=== PATIENT | male | born 1970 | race Caucasian/White ===

== ENCOUNTER 2017-12-22 14:15 | Emergency (ER) | payer BC, OTHER ==
[~2017-12-22 14:15] MED LIST: ISOVUE-370 76%-LOCM 1 ML ONE
[2017-12-22 14:33] LABS: #Basophils 0.2 thou/uL (0.0-0.2); #Eosinphils 0.3 thou/uL (0.0-0.7); #Lymphocytes 3.8 thou/uL (1.20-3.40); #Monocytes 0.8 thou/uL (0.11-0.59); #Neutrophils 3.7 thou/uL (1.40-6.50); %Basophils 2.1 % (0.0-1.0); %Eosinophils 3.3 % (0.0-10.0); %Monocytes 9.4 % (0.0-10.0); %Neutrophils 42.1 % (42.0-75.0); Hemoglobin 17.1 g/dL (14.0-18.0); Mean Corpuscular HGB CONC 35.8 g/dL (32.0-36.0); Mean Corpuscular Hemoglobin 32.8 pg (27.0-31.0); Mean Corpuscular Volume 91.5 fl (80.0-94.0); Mean Platelet Volume 9.8 fL (7.4-10.4); Platelet Count 147 thou/uL (130-400); Red Blood Cell (RBC) Count 5.21 mill/uL (4.70-6.10); White Blood Cell (WBC) Count 8.8 thou/uL (4.8-10.8)
[2017-12-22 14:54] LABS: ALT (SGPT) 189 U/L (8-55); AST (SGOT) 71 U/L (5-34); Albumin 4.5 g/dL (3.5-5.0); Alkaline Phosphatase 151 U/L (40-150); Anion Gap 12 mmol/L (10-20); BUN (Urea Nitrogen) 17 mg/dL (8.9-20.6); Bilirubin, Total 0.4 mg/dL (0.2-1.2); CK (CPK) 113 U/L (30-200); Calc. Creatinine Clearance 0 mL/min (70-130); Calcium 9.6 mg/dL (7.8-10.44); Carbon Dioxide 28 mmol/L (22-29); Chloride 106 mmol/L (98-107); Estimated GFR-MDRD Greater than 90; Globulin 3.4 g/dL (2.4-3.5); Glucose 114 mg/dL (70-105); Potassium 3.9 mmol/L (3.5-5.1); Protein, Total 7.9 g/dL (6.0-8.3); Sodium 142 mmol/L (136-145)
--- NOTE | 2017-12-22 14:54 | RAD ---
FRONTAL VIEW CHEST: Date: 12/22/17 INDICATION: Chest pain. FINDINGS: There is prominence of cardiac silhouette. No lobar consolidation, effusion, or pneumothorax. Referen ce made to 05/24/17 exam. IMPRESSION: Stable chest without focal consolidation. POS: [facility]
[2017-12-22 14:58] LABS: CKMB 1.7 ng/mL (0-6.6); Troponin I Less than 0.010 ng/mL (< 0.028)
[2017-12-22] MEDS ORDERED: hydrALAZINE 20 MG/ML VIAL ONE (15:00)
--- NOTE | 2017-12-22 17:05 | CT ---
CTA CHEST WITH IV CONTRAST AND 3D POSTPROCESSING CTA ABDOMEN WITH IV CONTRAST AND 3D POSTPROCESSING 12/22/17 HISTORY: Sharp left sided chest pain with nausea, dizziness and cough radiating into the shoulder. Hypertensio n. Concern for aortic dissection. FINDINGS: the thoracoabdominal aorta was of normal caliber and good opacification without aneurysm or dissecti on. The pulmonary artery vasculature is also well opacified without filling defects to suggest pulmon vy embolism. No pleural or pericardial effusions are seen. No pneumothoraces, focal areas of consoli dation or pulmonary masses are identified. No free air or free fluid is seen in the abdomen. The matthew d organs are grossly unremarkable. There is normal flow in the celiac axis, SMA, MARTHA and renal arteri es. There are degenerative changes in the thoracolumbar spine. IMPRESSION: No CT evidence of aortic dissection. POS: TR[facility]
[2017-12-22 17:14] LABS: Troponin I Less than 0.010 ng/mL (< 0.028)
== END 2017-12-22 17:25 | disposition home or self-care (01) ==
LOC: ERS 14:15
DX: R07.9 Chest pain, unspecified (principal); I10 Essential (primary) hypertension; E66.9 Obesity, unspecified; F41.9 Anxiety disorder, unspecified; Z79.899 Other long term (current) drug therapy
CPT/HCPCS: 36415; 71045; 71275; 80053; 82550; 82553; 84484; 85025; 93005; 94760; 96374; J0360

== ENCOUNTER 2018-01-11 10:51 | Inpatient (IN) | payer BC ==
[2018-01-11] MEDS ORDERED: Esmolol 2,500 MG/250 ML 250 ML ONE (11:18)
[2018-01-11 11:19] LABS: #Basophils 0.1 thou/uL (0.0-0.2); #Eosinphils 0.3 thou/uL (0.0-0.7); #Lymphocytes 4.1 thou/uL (1.20-3.40); #Monocytes 0.8 thou/uL (0.11-0.59); %Eosinophils 3.7 % (0.0-10.0); %Lymphocytes 43.4 % (21.0-51.0); %Monocytes 8.9 % (0.0-10.0); %Neutrophils 43.1 % (42.0-75.0); Hemoglobin 18.2 g/dL (14.0-18.0); Mean Corpuscular HGB CONC 34.3 g/dL (32.0-36.0); Mean Corpuscular Hemoglobin 30.8 pg (27.0-31.0); Mean Corpuscular Volume 89.6 fl (80.0-94.0); Mean Platelet Volume 9.4 fL (7.4-10.4); Platelet Count 163 thou/uL (130-400); White Blood Cell (WBC) Count 9.3 thou/uL (4.8-10.8)
[2018-01-11 11:26] LABS: INR-International Normal Ratio 1.1; PTT 33.7 SEC (22.9-36.1); Prothrombin Time 14.5 SEC (12.0-14.7)
[2018-01-11 11:45] LABS: ALT (SGPT) 256 U/L (8-55); AST (SGOT) 118 U/L (5-34); Albumin 4.8 g/dL (3.5-5.0); Alkaline Phosphatase 120 U/L (40-150); Anion Gap 15 mmol/L (10-20); BUN (Urea Nitrogen) 10 mg/dL (8.9-20.6); Bilirubin, Total 0.6 mg/dL (0.2-1.2); CK (CPK) 104 U/L (30-200); Calc. Creatinine Clearance 0 mL/min (70-130); Calcium 9.9 mg/dL (7.8-10.44); Carbon Dioxide 26 mmol/L (22-29); Chloride 104 mmol/L (98-107); Estimated GFR-MDRD Greater than 90; Globulin 3.2 g/dL (2.4-3.5); Glucose 110 mg/dL (70-105); Potassium 3.7 mmol/L (3.5-5.1); Sodium 141 mmol/L (136-145)
[2018-01-11 11:51] LABS: CKMB 1.4 ng/mL (0-6.6); Troponin I Less than 0.010 ng/mL (< 0.028)
[2018-01-11] MEDS ORDERED: ISOVUE-370 76%-LOCM 1 ML ONE (13:34)
--- NOTE | 2018-01-11 13:39 | CT ---
CT ANGIOGRAM CHEST AND CT ANGIOGRAM ABDOMEN INCLUDING 3D RENDERING: Date: 01/11/18 HISTORY: 47-year-old male with history of chest pain and shortness of breath. COMPARISON: 12/22/17 and 05/16/17. FINDINGS: There is no evidence for focal aortic aneurysm or aortic dissection. No evidence for pulmonary artery thrombosis. No significant acute pulmonary parenchymal process or pleural effusion. No pericardial e ffusion. There are some fatty changes in the liver. Status post cholecystectomy. 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 This is stable in appearance when compared to ex am dating back to 05/16/17. At least two right and left renal arteries are seen. Normal appearing carolina endix. IMPRESSION: No evidence for thoracic or abdominal aortic aneurysm or dissection. No evidence for acute pulmonary artery thrombosis. Stable small, confined dissection involving the celiac artery, unchanged dating ba ck to 05/16/17. Fatty changes in the liver. Other findings as above. Findings were discussed with Dr. Torres at 1320 hours. CODE CR. POS: [facility]
[2018-01-11] MEDS ORDERED: Acetaminophen 325 MG TAB PO PRN (15:14)
[2018-01-11] MEDS ORDERED: HYDROcodone/Acetaminophen 10/325 mg Tablet PO PRN (15:14)
[2018-01-11] MEDS ORDERED: HYDROcodone/Acetaminophen 5/325 mg Tablet PO PRN (15:14)
[2018-01-11] MEDS ORDERED: Ondansetron ODT 4 MG TAB PO PRN (15:14)
[2018-01-11] MEDS ORDERED: hydrALAZINE 20 MG/ML VIAL SLOW IVP PRN (15:17)
[2018-01-11] MEDS ORDERED: Labetalol HCl 100 MG/20 ML VIAL SLOW IVP PRN (15:17)
[2018-01-11] MEDS ORDERED: hydrALAZINE 25 MG TAB PO SCH ×2 (15:30→21:00)
[2018-01-11] MEDS ORDERED: Losartan/Hydrochlorothiazide 100 mg/25 mg Tablet PO SCH (15:30)
[2018-01-11] MEDS ORDERED: Amlodipine 10 MG TAB PO SCH (15:30)
[2018-01-11 16:13] LABS: CKMB 1.6 ng/mL (0-6.6); Troponin I Less than 0.010 ng/mL (< 0.028)
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
[2018-01-11 17:07] VITALS: BMI 38.9
--- NOTE | 2018-01-11 20:11 | ULT ---
RENAL ULTRASOUND: 01/11/18 INDICATIONS: Hypertension. Both kidneys measure approximately 12 cm in length. No evidence of hydronephrosis. Cortical echogenic ity appears normal. Bladder is contracted. IMPRESSION: Unremarkable renal ultrasound. POS: [facility]
[2018-01-11] MEDS: hydrALAZINE 25 MG TAB PO SCH (20:39)
[2018-01-11] MEDS: Famotidine 20 MG TAB PO SCH (20:43)
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
[2018-01-11] MEDS: Nitroglycerin 2% Ointment 1 INCH/1 GM Packet TOP SCH (21:57)
[2018-01-12 00:07] LABS: CKMB 1.3 ng/mL (0-6.6); Troponin I Less than 0.010 ng/mL (< 0.028)
[2018-01-12 04:54] LABS: Hemoglobin A1c 5.3 % (4.0-6.0)
[2018-01-12 05:43] LABS: ALT (SGPT) 216 U/L (8-55); AST (SGOT) 95 U/L (5-34); Albumin 4.5 g/dL (3.5-5.0); Alkaline Phosphatase 108 U/L (40-150); Anion Gap 13 mmol/L (10-20); BUN (Urea Nitrogen) 12 mg/dL (8.9-20.6); Bilirubin, Total 0.7 mg/dL (0.2-1.2); Calc. Creatinine Clearance 162 mL/min (70-130); Carbon Dioxide 26 mmol/L (22-29); Chloride 103 mmol/L (98-107); Estimated GFR-MDRD Greater than 90; Globulin 2.7 g/dL (2.4-3.5); Glucose 104 mg/dL (70-105); Magnesium 2.3 mg/dL (1.6-2.6); Potassium 3.7 mmol/L (3.5-5.1); Protein, Total 7.2 g/dL (6.0-8.3); Sodium 138 mmol/L (136-145)
[2018-01-12] MEDS: Nitroglycerin 2% Ointment 1 INCH/1 GM Packet TOP SCH (06:24)
[2018-01-12] MEDS: Famotidine 20 MG TAB PO SCH (08:46)
[2018-01-12] MEDS: hydrALAZINE 25 MG TAB PO SCH (08:46)
[2018-01-12] MEDS ORDERED: Amlodipine 10 MG TAB PO SCH (09:00)
[2018-01-12] MEDS ORDERED: Losartan/Hydrochlorothiazide 100 mg/25 mg Tablet PO SCH (09:00)
[2018-01-12] MEDS ORDERED: NIFEdipine XL 60 MG TAB PO SCH (09:00)
[2018-01-12 09:02] LABS: CKMB 1.3 ng/mL (0-6.6); Troponin I Less than 0.010 ng/mL (< 0.028)
[2018-01-12 10:55] VITALS: BP 120/73; TEMP 97.4
--- NOTE | 2018-01-12 11:06 | PRG ---
DATE OF SERVICE: 01/12/2018 SUBJECTIVE: This is a 47-year-old gentleman being seen for acute kidney injury and hypertension. Th e patient denies any nausea, vomiting or chest pain. PHYSICAL EXAMINATION: GENERAL: Patient is awake, alert. VITAL SIGNS: Afebrile, pulse 75, breathing 16, blood pressure 117/76. OBJECTIVE: See above. Awake, alert, in no acute distress. GENERAL APPEARANCE AND MENTAL STATUS: Fair. HEAD/NECK: Normocephalic. Atraumatic. EYES: EOMI. No deformity. EARS: Clear. No ulcers. NOSE: Intact. No lesions. MOUTH: Clear. No discharge. THROAT: Clear. No exudate. LUNGS: Clear. No crackles. CARDIAC: S1, S2. No rub. ABDOMEN: Benign. BS+. GENITALIA/RECTUM: Carlson absent. BACK/EXTREMITIES: Edema 0+ Ulcer- NEUROLOGICAL: Alert and motor intact. SKIN: Rash- Bruise- LYMPHATICS: Edema- Ulcer- ASSESSMENT AND RECOMMENDATIONS: 1. Chronic kidney disease stage 2, stable. 2. Hypertension, stable. 3. Anemia, stable. 4. Medication based on glomerular filtration rate are appropriate. The patient will follow up with serological studies as an outpatient.
--- NOTE | 2018-01-12 11:24 | CON ---
DATE OF CONSULTATION: 01/12/2018 HISTORY OF PRESENT ILLNESS: This is a 47-year-old obese gentleman with known history of sleep apnea, uncontrolled hypertension. 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 He has apparently been having some difficulty breathing. He says he is a nonsmoker, no prior history of TB or bronchial asthma. He sees a Dr. Shrestha and Dr. Bartlett. Presently he has had uncontrolled hypertension and Dr. Bartlett has seen him, further evaluation per him. PAST MEDICAL HISTORY: 1. Hypertension. 2. Sleep apnea. 3. Obesity 4. Anxiety. PAST SURGICAL HISTORY: Hernia, gallbladder, right wrist surgery. MEDICATIONS FROM HOME: ISMO 60, Lasix 20, metoprolol 100, losartan, Celexa 20, amlodipine 10, tramad ol 50, ibuprofen. ALLERGIES: None. 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 REVIEW OF SYSTEMS: Otherwise, extensive 10 point negative. PHYSICAL EXAMINATION: VITAL SIGNS: Sats are 97 on room air, blood pressure much better 170/76, temperature 98, pulse 60. CHEST: No wheezing or crackles. CARDIAC: Normal S1-S2. ABDOMEN: Soft. No mass. LABORATORY DATA: White count 9000, H&H 8 and 52, platelet count is normal. Electrolytes are normal. ALT is slightly elevated. IMPRESSION: 1. 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 2. Chest pain. 3. Obesity. 4. Coronary artery disease. 5. Hypertension. 6. Sleep apnea. PLAN: Pulmonary will follow while in the IMCU. I have suggested he get a CPAP restarted again. His blood pressure is better controlled. Will order a thyroid function. This is a consultation note, 70 minutes of which 50% of the time spent with direct patient care.
[2018-01-16 11:22] LABS: Renin Activity 0.436 ng/mL/hr (0.167-5.380)
[2018-01-18 22:13] LABS: Metanephrine,Plasma <10 pg/mL (0-62); Normetanephrine,Pl <10 pg/mL (0-145)
--- NOTE | 2018-02-03 21:19 | EKG ---
Test Reason : Blood Pressure : / mmHG Vent. Rate : 067 BPM Atrial Rate : 067 BPM P-R Int : 140 ms QRS Dur : 092 ms QT Int : 444 ms P-R-T Axes : 007 -24 -07 degrees QTc Int : 469 ms Normal sinus rhythm Voltage criteria for left ventricular hypertrophy Nonspecific ST abnormality Abnormal ECG Confirmed by WARNER PANDYA, XOCHILT ([id number]), proposal editor MARTIN JEWELL ([id number]) on 02/03/2018 9:18:48 PM Referred By: Confirmed By:XOCHILT HYLTON MD
== END 2018-01-12 12:40 | disposition home or self-care (01) | DRG 305 ==
LOC: ERS 10:51 → OBSVTOIN 15:21 → IMCU/EMU 15:21
PROVIDERS: ADMIT Internal Medicine Infectious Disease; ATTEND Internal Medicine Infectious Disease
DX: I16.0 Hypertensive urgency (principal); N17.9 Acute kidney failure, unspecified; E66.9 Obesity, unspecified; I12.9 Hypertensive chronic kidney disease with stage 1 through stage 4 chronic kidney disease, or unspecified chronic kidney disease; N18.2 Chronic kidney disease, stage 2 (mild); F41.9 Anxiety disorder, unspecified; G47.30 Sleep apnea, unspecified; R73.03 Prediabetes; Z68.38 Body mass index [BMI] 38.0-38.9, adult; Z79.899 Other long term (current) drug therapy
CPT/HCPCS: 36415; 71275; 76770; 80053; 82088; 82553; 83036; 83735; 83835; 84244; 84443; 84484; 85025; 85610; 85730; 93005; 96365; 96366

== ENCOUNTER 2018-01-18 10:52 | Observation (INO) | payer BC ==
[2018-01-18 12:29] LABS: #Basophils 0.2 thou/uL (0.0-0.2); #Eosinphils 0.3 thou/uL (0.0-0.7); #Lymphocytes 3.6 thou/uL (1.20-3.40); #Monocytes 0.8 thou/uL (0.11-0.59); #Neutrophils 4.2 thou/uL (1.40-6.50); %Basophils 1.7 % (0.0-1.0); %Eosinophils 3.8 % (0.0-10.0); %Monocytes 8.3 % (0.0-10.0); %Neutrophils 46.2 % (42.0-75.0); Hemoglobin 15.6 g/dL (14.0-18.0); Mean Corpuscular HGB CONC 35.2 g/dL (32.0-36.0); Mean Platelet Volume 9.2 fL (7.4-10.4); Platelet Count 147 thou/uL (130-400); Red Blood Cell (RBC) Count 4.86 mill/uL (4.70-6.10); White Blood Cell (WBC) Count 9.1 thou/uL (4.8-10.8)
[2018-01-18 12:44] LABS: ALT (SGPT) 191 U/L (8-55); AST (SGOT) 94 U/L (5-34); Albumin 4.3 g/dL (3.5-5.0); Alkaline Phosphatase 95 U/L (40-150); Anion Gap 12 mmol/L (10-20); BUN (Urea Nitrogen) 13 mg/dL (8.9-20.6); Bilirubin, Total 0.5 mg/dL (0.2-1.2); CK (CPK) 74 U/L (30-200); Calc. Creatinine Clearance 0 mL/min (70-130); Calcium 9.4 mg/dL (7.8-10.44); Carbon Dioxide 25 mmol/L (22-29); Chloride 106 mmol/L (98-107); Estimated GFR-MDRD Greater than 90; Globulin 2.6 g/dL (2.4-3.5); Glucose 107 mg/dL (70-105); Lipase 21 U/L (8-78); Potassium 3.6 mmol/L (3.5-5.1); Protein, Total 6.9 g/dL (6.0-8.3); Sodium 139 mmol/L (136-145)
[2018-01-18 12:49] LABS: CKMB 1.2 ng/mL (0-6.6); Troponin I Less than 0.010 ng/mL (< 0.028)
[2018-01-18] MEDS ORDERED: Nitroglycerin 2% Ointment 1 INCH/1 GM Packet ONE (12:56)
[2018-01-18 13:32] LABS: Bilirubin Negative (Negative); Blood, Urine Negative (Negative); Clarity CLEAR (Clear); Glucose, Urine (Dipstick) Negative (Negative); Leukocyte Negative (Negative); Nitrite Negative (Negative); Protein, Urine (Dipstick) Negative (Neg-Trace); Urobilinogen 0.2 mg/dL (0.2-1.0)
[2018-01-18] MEDS ORDERED: Nitroglycerin 0.4 MG TAB (25 Tab Bottle) PO PRN (14:06)
[2018-01-18] MEDS ORDERED: HYDROcodone/Acetaminophen 7.5/325 mg Tablet PO PRN (14:06)
[2018-01-18] MEDS ORDERED: Acetaminophen 325 MG TAB PO PRN (14:06)
[2018-01-18 14:14] VITALS: BMI 40.4
--- NOTE | 2018-01-18 14:25 | RAD ---
PORTABLE CHEST; Date: 01/18/18 HISTORY: Dyspnea. FINDINGS: Lungs appear clear. No infiltrate or vascular congestion seen. Heart size upper normal, but accentuat ed by disc projection. IMPRESSION: No evidence of acute lung process. POS: OFF
[2018-01-18] MEDS ORDERED: FLU VACC QS2017-18 36 mo. & older 0.5 ML SYRINGE IM ONE (15:15)
--- NOTE | 2018-01-18 15:19 | ULT ---
RIGHT UPPER QUADRANT GALLBLADDER ULTRASOUND: HISTORY: Elevated liver function enzymes. Abdominal pain. Patient with previous history of cholecystectomy i n 1999. TECHNIQUE: Multiple longitudinal and transverse images of the right upper quadrant of the abdomen were obtained using a Multi-Hertz curvilinear transducer. Real-time and color-flow images are used to evaluate the right upper quadrant. FINDINGS: Images demonstrate fibrofatty changes seen in the liver. The common bile duct is of normal size, jay suring 6 mm. Normal hepatopedal flow is seen. The gallbladder has been surgically removed. Fibrofatty changes seen in the hepatic parenchyma. The pancreas is suboptimally visualized due to overlying bowel gas. The right kidney is unremarkable, with a [id number]-ql-[id number] measurement of 14.2 cm. IMPRESSION: 1. Fibrofatty changes seen in the liver. 2. Unremarkable right upper quadrant ultrasound in a patient post cholecystectomy. POS: [facility]
[2018-01-18 15:32] LABS: Troponin I Less than 0.010 ng/mL (< 0.028)
[2018-01-18] MEDS ORDERED: Fioricet 325/50/40 mg Tablet PO PRN (16:07)
--- NOTE | 2018-01-18 16:35 | HP ---
DATE OF ADMISSION: 01/18/2018 CHIEF COMPLAINT: Chest pain. HISTORY OF PRESENT ILLNESS: This is a 47-year-old morbidly obese white male with known past medical history of chest pain recently admitted a week ago and was thoroughly evaluated by Cardiology and the re was a suspicion for dissection, which was ruled out with CTA and echo at that time. Patient went home and was about to follow up with Nephrology today with Dr. Avitia and developed acute onset of ches t pain similar in intensity as last time and patient was sent to the ER for further evaluation of his chest pain. The patient was having severe chest pain on 7/10 intensity in the left precordium and a lso in the right upper quadrant. Also, has right upper quadrant pain of 4/10 in intensity. Pain is associated with some nausea, but no sweating, no diarrhea, no constipation. The patient was initiall y scheduled for a nuclear stress test on of this month, but patient cannot wait that long and th ey decided to come to the hospital as per Dr. Avitia's advice. The patient is seen on the floor. He i s alert and oriented, did not appears to be in acute distress at this time. Ultrasound of the gallbl adder was done today in the ER which showed no evidence of any gallstones as patient had cholecystect isaias in the past, but patient continues to have pain in the right upper quadrant. Patient denies having any fever. Denies having any chills or rigors. No history of cough and cold. PAST MEDICAL HISTORY: 1. Hypertension. 2. Borderline diabetes. 3. History of celiac artery dissection finding on the CTA. PAST SURGICAL HISTORY: Umbilical hernia repair in 2010, cholecystectomy in 2010, and right wrist cassy shira in 2009. SOCIAL HISTORY: The patient has no history of smoking. No history of alcohol, no history of illicit drug use. FAMILY HISTORY: No history of clotting or bleeding disorders. No history of premature deaths in the family. HOME MEDICATIONS: 1. Metoprolol. 2. Isosorbide mononitrate. 3. Norvasc. 4. Losartan/hydrochlorothiazide 100/25. 5. Lasix twice a day. 6. Potassium chloride. 7. Acetaminophen and butalbital. 8. Topamax. 9. Citalopram 20 mg p.o. daily. ALLERGIES: No known drug allergies. REVIEW OF SYSTEMS: All 12 systems are reviewed with the patient thoroughly and found to be negative at this time. Systems reviewed are HEENT, CVS, ROLL PLUGGER MACHINE OPERATOR, respiratory, GI, , musculoskeletal, skin and i ntegument, and psychiatric. The following complete review of systems was negative, unless otherwise mentioned in the HPI or below: Constitutional: Weight loss or gain, sense of well-being, ability to conduct usual activities, exerc ise tolerance. Skin/Breast: Rash, itching, changes in hair growth or loss, nail changes, breast lumps, tenderness, swelling, nipple discharge. Eyes: Vision, double vision, tearing, blind spots, pain. ENT/Mouth: Headaches (location, time of onset, duration, precipitating factors), vertigo, lightheade dness, injury. Vision, double vision, tearing, blind spots, pain, nose bleeding, colds, obstruction, discharge, dental difficulties, gingival bleeding, dentures, neck stiffness, pain, tenderness, masses in thyroid or other areas Cardiovascular: Precordial pain, substernal distress, palpitations, syncope, dyspnea on exertion, or thopnea, nocturnal paroxysmal dyspnea, edema, cyanosis, hypertension, heart murmurs, varicosities, ph lebitis, claudication. Respiratory: Pain, shortness of breath, wheezing, stridor, cough, hemoptysis, fever or night sweats Gastrointestinal: Poor appetite, dysphagia, indigestion, abdominal pain, heartburn, eructation, naus ea, vomiting, hematemesis, jaundice, constipation, or diarrhea, abnormal stools (bharath-colored, tarry, bloody, greasy, foul smelling), flatulence, hemorrhoids, recent changes in bowel habits. Genitourinary: Urgency, frequency, dysuria, nocturia, hematuria, polyuria, oliguria, unusual (or bradly nge in) color of urine, stones, hesitancy, change in size of stream, dribbling, acute retention or in continence, libido, potency. Musculoskeletal: Pain, swelling, redness or heat of muscles or joints, limitation, of motion, muscul ar weakness, atrophy, cramps. Neurologic/Psychiatric: Convulsions, paralyses, tremor, incoordination, paraesthesias, difficulties with memory of speech, sensory or motor disturbances, or muscular coordination (ataxia, tremor), emot ional problems, anxiety, depression, previous psychiatric care, unusual perceptions, hallucinations. Allergy/Immunologic: Skin rash, anemia, bleeding tendency, polydipsia, polyuria, intolerance to heat or cold. PHYSICAL EXAMINATION: VITAL SIGNS: Blood pressure is 134/73, heart rate is 68, respiratory rate is 20, saturation 95%. GENERAL: The patient is moderately built, moderately nourished, does not appear to be in acute distr ess at this time. He is alert and oriented x3. HEENT: Atraumatic, normocephalic. PERRLA. Extraocular movements were intact. CARDIOVASCULAR: S1 and S2 normal. No murmurs, rubs or gallops. LUNGS: Bilateral air entry is equal, no wheezing, no crackles. ABDOMEN: Soft, nontender, no guarding, no rebound tenderness. Bowel sounds normal. MUSCULOSKELETAL: No calf tenderness. No pedal edema. No joint tenderness, no joint swelling. SKIN: No cyanosis, no erythema, no rash, no pallor. CENTRAL NERVOUS SYSTEM: Cranial examination II-XII intact. No focal deficits were noted. LABORATORY DATA: WBC 9.1, hemoglobin is 15.6, hematocrit 44.2, platelets 147. Sodium 139, potassium 3.6, chloride 106, bicarbonate 25, BUN 13, creatinine 0.72, AST 94, ALT 191, BNP 14.9, and troponin 0.010. IMAGING DATA: Chest x-ray was done today showed no evidence of any acute cardiopulmonary process. ASSESSMENT AND PLAN: 1. Acute chest pain, recurrent. 2. Right upper quadrant pain. 3. Morbid obesity. 4. Hypertension. 5. Hyperlipidemia. 6. Anxiety disorder. PLAN: 1. Plan is to reorder the echo at this time as the patient is having severe pains and concerning for coronary artery disease. Patient had a negative troponin. At this time, we will do the echo and pl an for nuclear study if agreeable with Cardiology. So we will consult Cardiology, Dr. Dhruv franz who initially planned for outpatient nuclear stress test. 2. Patient has right upper quadrant pain. Ultrasound of the gallbladder was done which was negative as patient had cholecystectomy, but did not show any evidence of common bile duct stones. He has pe rsistent elevation of his liver enzymes which according to him, which has always been elevated and he has been closely followed with outpatient GI doctor, Dr. Rodriges. 3. The patient has normal blood pressures. We will continue the patient's home medications. 4. The patient is morbidly obese. Encouraged the patient to lose weight. 5. Patient has a history of anxiety and depression. We will restart the patient on Celexa which he takes at home. 6. Deep venous thrombosis prophylaxis with Lovenox 40 mg subcu daily. I spent 75 minutes of this patient.
[2018-01-18] MEDS ORDERED: Communication Order-Pharmacy FS SCH (17:30)
[2018-01-18] MEDS ORDERED: Sodium Chloride 0.9% 1,000 ML IV SCH (17:30)
[2018-01-18] MEDS ORDERED: Enoxaparin Sodium 30 MG/0.3 ML SYRINGE SC SCH (18:00)
[2018-01-18] MEDS ORDERED: Enoxaparin Sodium 100 MG/ML SYRINGE SC SCH (18:30)
--- NOTE | 2018-01-18 18:34 | CON ---
DATE OF CONSULTATION: 01/18/2018 REASON FOR CONSULTATION: Chest pain and pressure. PRIMARY EQUAL OPPORTUNITY REPRESENTATIVE: Dr. Alessio Bartlett. HISTORY OF PRESENT ILLNESS: Mr. Perez is a very pleasant 47-year-old gentleman who has recently b een having chest pressure. He said about 2 days ago he had a severe episode of pain in the middle of his chest going across the left side of his chest and then to the left upper arm, it gradually resol gera. Since then, he has had recurrent episodes similar to that including last night at rest. He krish d it makes him feel short of breath when he gets that, sometimes it feels sharp and mostly feels like a pressure as outlined above. The patient had been scheduled for an outpatient stress test. PAST MEDICAL HISTORY: 1. Hypertension, difficult to control. 2. 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 3. History of increased liver function test. 4. "Borderline diabetes." MEDICATIONS PRIOR TO ADMISSION: 1. Hydralazine. 2. Losartan HCT. 3. Metoprolol. 4. Nifedipine. 5. Isosorbide. 6. Naproxen. ALLERGIES: None known. SOCIAL HISTORY: No alcohol or tobacco abuse. REVIEW OF SYSTEMS: CONSTITUTIONAL: No significant weight gain or loss. VISION: No changes. HEARING: No changes. PULMONARY: No cough or wheezing. GASTROINTESTINAL: No nausea, vomiting, diarrhea. SKIN: No rashes. NEUROLOGIC: No unilateral weakness or numbness. PSYCHIATRIC: No unusual depression or anxiety. HEMATOLOGIC: No unusual bruising. GENITOURINARY: No burning with urination. FAMILY HISTORY: Noncontributory. PHYSICAL EXAMINATION: GENERAL: This is a pleasant 47-year-old gentleman, alert and oriented. VITAL SIGNS: 5 feet 4 inches tall, 235 pounds. Blood pressure 134/73, pulse 68 and regular. LUNGS: Clear. CARDIAC: Normal S1, normal S2. There is no murmur, rub or gallop. ABDOMEN: Soft and nontender. No hepatosplenomegaly. EXTREMITIES: Warm and dry. No clubbing, no cyanosis or edema. Intact peripheral pulses. LABORATORY AND X-RAY FINDINGS: On reviewing the records, his troponin levels are negative. His live r function tests were increased AST 94, ALT 191. Potassium level 3.6, creatinine is 0.72, hemoglobin 15.6. EKG sinus rhythm, no acute changes. ASSESSMENT: 1. Chest pressure, very suspicious for angina. 2. Hypertension, on multiple medications. 3. 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 4. Obesity. 5. Increased liver function test. PLAN: We would recommend the patient to undergo cardiac catheterization to make a definitive diagnos is. Discussed risks of stroke, heart attack, iodine allergy, loss of blood supply to the leg or kidn ey, stent thrombosis, stent restenosis. He understands and wishes to proceed. We will discuss this with Dr. Bartlett tomorrow morning.
[2018-01-18] MEDS: Sucralfate 1 GM TAB PO SCH ×2 (18:38→21:03)
[2018-01-18 18:57] LABS: Troponin I Less than 0.010 ng/mL (< 0.028)
[2018-01-18] MEDS ORDERED: Famotidine/PF 20 mg/2ml Vial SLOW IVP SCH (21:00)
[2018-01-18] MEDS ORDERED: Carvedilol 3.125 MG TAB PO SCH (21:00)
[2018-01-18] MEDS: hydrALAZINE 25 MG TAB PO SCH (21:00)
[2018-01-18] MEDS ORDERED: Nortriptyline HCl 25 MG CAP PO SCH (21:00)
[2018-01-18] MEDS: Famotidine 40 MG/4 ML VIAL SLOW IVP SCH (21:03)
[2018-01-18] MEDS: Docusate 100 MG CAP PO SCH (21:04)
[2018-01-19 04:32] LABS: #Basophils 0.1 thou/uL (0.0-0.2); #Eosinphils 0.4 thou/uL (0.0-0.7); #Lymphocytes 3.5 thou/uL (1.20-3.40); #Monocytes 0.7 thou/uL (0.11-0.59); #Neutrophils 3.7 thou/uL (1.40-6.50); %Basophils 1.7 % (0.0-1.0); %Eosinophils 4.8 % (0.0-10.0); %Lymphocytes 41.9 % (21.0-51.0); %Neutrophils 43.7 % (42.0-75.0); Hemoglobin 15.3 g/dL (14.0-18.0); Mean Corpuscular HGB CONC 34.8 g/dL (32.0-36.0); Mean Corpuscular Hemoglobin 31.8 pg (27.0-31.0); Mean Corpuscular Volume 91.2 fl (80.0-94.0); Mean Platelet Volume 9.5 fL (7.4-10.4); Platelet Count 137 thou/uL (130-400); White Blood Cell (WBC) Count 8.4 thou/uL (4.8-10.8)
[2018-01-19 04:39] LABS: Anion Gap 12 mmol/L (10-20); BUN (Urea Nitrogen) 14 mg/dL (8.9-20.6); Calc. Creatinine Clearance 177 mL/min (70-130); Calcium 9.4 mg/dL (7.8-10.44); Carbon Dioxide 25 mmol/L (22-29); Cardiac Risk 4.9 (Less than 4.5); Chloride 106 mmol/L (98-107); Cholesterol 153 mg/dl (< 200 Desired); Estimated GFR-MDRD Greater than 90; Glucose 103 mg/dL (70-105); HDL Cholesterol 31 mg/dL (>60 Neg Risk); LDL Cholesterol, Calculated 53 mg/dL; Potassium 3.4 mmol/L (3.5-5.1); Sodium 140 mmol/L (136-145); Triglycerides 344 mg/dL (Less than 150)
[2018-01-19] MEDS ORDERED: Diazepam 5 MG TAB PO SCH (05:00)
[2018-01-19] MEDS ORDERED: Sodium Chloride 0.9% 1,000 ML IV SCH ×2 (05:00→07:56)
[2018-01-19] MEDS: Famotidine 40 MG/4 ML VIAL SLOW IVP SCH (05:52)
[2018-01-19] MEDS: Sucralfate 1 GM TAB PO SCH ×2 (05:58→11:30)
[2018-01-19] MEDS: hydrALAZINE 25 MG TAB PO SCH (05:58)
[2018-01-19] MEDS: Docusate 100 MG CAP PO SCH ×2 (05:59→06:20)
[2018-01-19] MEDS ORDERED: Heparin 10,000 UNITS/1 ML VIAL ONE (06:37)
[2018-01-19] MEDS ORDERED: Lidocaine 1% (PF) 30 ML VIAL ONE (06:37)
[2018-01-19] MEDS ORDERED: Midazolam HCl 2 mg/2 ml Vial ONE (07:17)
[2018-01-19] MEDS ORDERED: traMADol HCl 50 MG TAB PO PRN (07:54)
[2018-01-19] MEDS ORDERED: Nitroglycerin 0.4 MG TAB (25 Tab Bottle) SL PRN (07:54)
[2018-01-19] MEDS ORDERED: Acetaminophen/Codeine 30-300mg Tablet PO PRN ×2 (07:54)
[2018-01-19] MEDS ORDERED: Protamine Sulfate 50 MG/5 ML VIAL ONE (07:55)
[2018-01-19] MEDS ORDERED: Sodium Chloride 0.9% 200 ML IV PRN (08:00)
[2018-01-19] MEDS ORDERED: NIFEdipine XL 60 MG TAB PO SCH (09:00)
[2018-01-19] MEDS ORDERED: Enoxaparin Sodium 40 MG/0.4 ML SYRINGE SC SCH (09:00)
[2018-01-19] MEDS ORDERED: Aspirin 325 MG TAB PO SCH (09:00)
[2018-01-19] MEDS ORDERED: Citalopram 20 MG TAB PO SCH (09:00)
[2018-01-19 11:10] VITALS: BP 106/71; TEMP 97.8
--- NOTE | 2018-01-19 12:56 | DIS ---
DATE OF ADMISSION: 01/18/2018 DATE OF DISCHARGE: 01/18/2018 ADMITTING DIAGNOSIS: Acute chest pain. DISCHARGE DIAGNOSIS: Acute chest pain, noncardiac. SECONDARY DIAGNOSES: 1. Morbid obesity. 2. Hypertension. 3. Diabetes. 4. History of celiac artery dissection. 5. Elevated liver enzymes. 6. Gastroesophageal reflux disease. 7. Esophagitis. PROCESS PROJECT ENGINEER INVOLVED IN THE CARE: Dr. Black. PROCEDURES DONE DURING THIS ADMISSION: Cardiac catheterization, which did not show any evidence of c oronary artery disease. HISTORY OF PRESENT ILLNESS AND HOSPITAL COURSE: In brief, this is a 47-year-old morbidly obese white male with a known past medical history of recurrent chest pains. He was evaluated by Cardiology in the past by Dr. Bartlett, who initially planned for outpatient stress test and patient was seen by Ne phrology and when the patient was complaining of chest pain, advised the patient to go to the ER for further evaluation. When patient presented to the ER, he had an EKG, which was normal and unremarkab le, but had a severe ongoing chest pain. The patient was admitted for further evaluation. He had el evated liver enzymes, so gallbladder ultrasound was done, which showed a history of cholecystectomy, but no other changes on the liver was noted. 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 The patient was monitored and because of his typical chest pain syndrom e, patient was at high risk according to Cardiology and scheduled him for cardiac catheterization, wh ich turned out to be unremarkable. The patient continues to have pain radiating to the left arm. Pa in was 7/10 in intensity all the time. The patient was started on Carafate, which according to the p atient did help him. Patient is on naproxen, which could be contributing to the esophagitis and GERD . We will advise the patient to avoid NSAIDs and continue the Carafate. PHYSICAL EXAMINATION: On the day of discharge; VITAL SIGNS: Blood pressures are 106/71, heart rate is 71, respiratory rate is 16 and saturation 92% . GENERAL: The patient is moderately built, moderately nourished, does not appear to be in acute distr ess. CARDIOVASCULAR: S1 and S2 normal. No murmurs, rubs or gallops. LUNGS: Air entry was equal. No wheezing, no crackles. ABDOMEN: Soft and nontender. No guarding or rebound tenderness. Bowel sounds normal. MUSCULOSKELETAL: No calf tenderness. No pedal edema. No joint tenderness, no joint swelling. SKIN: No cyanosis, no erythema, no rash, no pallor. CENTRAL NERVOUS SYSTEM: Cranial nerve examination II-XII intact. No focal deficits are noted. DISCHARGE MEDICATIONS: Albuterol, citalopram 20 mg p.o. daily, hydralazine 100 mg p.o. t.i.d., isoso rbide 60 mg p.o. daily, losartan/hydrochlorothiazide one tablet p.o. daily, metoprolol 12 mg p.o. santiago ly, nifedipine 60 mg p.o. daily and nortriptyline 25 mg p.o. daily. STOPPED MEDICATIONS: Naproxen. NEW MEDICATIONS: 1. Fenofibrate 140 mg p.o. daily for hypertriglyceridemia. 2. Sucralfate 1 gram p.o. a.c. and at bedtime. DISCHARGE INSTRUCTIONS: 1. Continue activity as tolerated. 2. Advised to follow up with the primary care physician in 1-2 weeks. Advised to follow up with Car diology for any persistent chest pains in 2-3 weeks. 3. Continue the cardiac diet. I spent 35 minutes with this patient on the day of dictation.
[2018-01-19] MEDS ORDERED: Iopamidol 370 76% 50 ML VIAL FS ONE (15:51)
[2018-01-19] MEDS ORDERED: Iopamidol 370 76% 100 ML VIAL ONE (15:51)
[2018-01-20] MEDS ORDERED: Fenofibrate Nanocrystallized 145 MG TAB PO SCH (09:00)
--- NOTE | 2018-03-02 14:41 | EKG ---
Test Reason : CP/SOB Blood Pressure : / mmHG Vent. Rate : 084 BPM Atrial Rate : 084 BPM P-R Int : 144 ms QRS Dur : 086 ms QT Int : 396 ms P-R-T Axes : 019 -26 -15 degrees QTc Int : 467 ms Normal sinus rhythm Voltage criteria for left ventricular hypertrophy Cannot rule out Inferior infarct , age undetermined Abnormal ECG When compared with ECG of DEC 2017 No changes Confirmed by SAMMIE PANDYA, VINICIUS ([id number]), slot editor MARTIN JEWELL ([id number]) on 03/02/2018 2:40:59 PM Referred By: SIMRAN Confirmed By:VINICIUS COCHRAN MD
== END 2018-01-19 15:17 | disposition home or self-care (01) ==
LOC: ERS 10:52 → 2SW 13:04
PROVIDERS: ADMIT Family Medicine; ATTEND Family Medicine
PROC: 4A023N7 Measurement of Cardiac Sampling and Pressure, Left Heart, Percutaneous Approach (ICD-10-PCS; principal; 2018-01-19)
PROC: B2151ZZ Fluoroscopy of Left Heart using Low Osmolar Contrast (ICD-10-PCS; 2018-01-19)
DX: R07.89 Other chest pain (principal); E66.01 Morbid (severe) obesity due to excess calories; I10 Essential (primary) hypertension; R94.5 Abnormal results of liver function studies; K21.0 Gastro-esophageal reflux disease with esophagitis; F41.9 Anxiety disorder, unspecified; R73.03 Prediabetes; Z68.41 Body mass index [BMI] 40.0-44.9, adult; Z79.899 Other long term (current) drug therapy; Z90.49 Acquired absence of other specified parts of digestive tract; Z98.890 Other specified postprocedural states
CPT/HCPCS: 36252; 36415; 71045; 76705; 80048; 80053; 80061; 81003; 82553; 83605; 83690; 83880; 84484; 85025; 85347; 85379; 87040; 87804; 93005; 93458; 94760; 96360; 96361; 96372; 96374; 96376; 99152; 99153; A4216; C1769; G0378; J1644; J1650; J2001; J2250; J2720

== ENCOUNTER 2019-01-09 02:44 | Emergency (ER) | payer BC ==
[2019-01-09 03:32] LABS: Bilirubin Negative (Negative); Blood, Urine Moderate (Negative); Clarity CLEAR (Clear); Glucose, Urine (Dipstick) Negative (Negative); Leukocyte Trace (Negative); Nitrite Negative (Negative); Protein, Urine (Dipstick) Negative (Neg-Trace); Specific Gravity, Urine 1.011 (1.002-1.036); Urobilinogen 0.2 mg/dL (0.2-1.0)
[2019-01-09 03:35] LABS: Bacteria/HPF None Seen HPF (None Seen); Hyaline Casts/LPF 0-3 HYALINE CAST LPF (0-3 Hyaline); Pathc Cast-AUWi Flag 0.13 (0-2.49); RBC/HPF 21-50 HPF (0-3); Squamous Epithelial 0-3 HPF (0-3)
[2019-01-09] MEDS ORDERED: Ketorolac Tromethamine 60 MG/2 ML VIAL ONE (04:15)
[2019-01-09 04:22] LABS: #Basophils 0.2 thou/uL (0.0-0.2); #Eosinphils 0.4 thou/uL (0.0-0.7); #Lymphocytes 3.1 thou/uL (1.20-3.40); #Monocytes 0.8 thou/uL (0.11-0.59); #Neutrophils 5.3 thou/uL (1.40-6.50); %Basophils 1.6 % (0.0-1.0); %Eosinophils 3.8 % (0.0-10.0); %Lymphocytes 31.9 % (21.0-51.0); %Neutrophils 54.8 % (42.0-75.0); Mean Corpuscular HGB CONC 33.7 g/dL (32.0-36.0); Mean Corpuscular Hemoglobin 30.2 pg (27.0-31.0); Mean Corpuscular Volume 89.8 fL (78.0-98.0); Mean Platelet Volume 10.7 fL (7.4-10.4); Platelet Count 136 thou/uL (130-400); RBC Distribution Width 12.6 % (11.5-14.5); White Blood Cell (WBC) Count 9.7 thou/uL (4.8-10.8)
[2019-01-09 04:42] LABS: ALT (SGPT) 185 U/L (8-55); AST (SGOT) 73 U/L (5-34); Albumin 4.4 g/dL (3.5-5.0); Alkaline Phosphatase 114 U/L (40-150); Anion Gap 14 mmol/L (10-20); BUN (Urea Nitrogen) 16 mg/dL (8.9-20.6); Bilirubin, Total 0.3 mg/dL (0.2-1.2); Calc. Creatinine Clearance 0 mL/min (70-130); Calcium 9.7 mg/dL (7.8-10.44); Carbon Dioxide 25 mmol/L (22-29); Chloride 106 mmol/L (98-107); Estimated GFR-MDRD 68; Globulin 2.8 g/dL (2.4-3.5); Glucose 178 mg/dL (70-105); Potassium 3.7 mmol/L (3.5-5.1); Protein, Total 7.2 g/dL (6.0-8.3); Sodium 141 mmol/L (136-145)
== END 2019-01-09 05:33 | disposition home or self-care (01) ==
LOC: ERS 02:44
DX: M62.830 Muscle spasm of back (principal); I10 Essential (primary) hypertension; F41.9 Anxiety disorder, unspecified; Z79.899 Other long term (current) drug therapy
CPT/HCPCS: 36415; 80053; 81003; 81015; 85025; 87086; 96372; J1885

== ENCOUNTER 2020-10-20 11:58 | Inpatient (IN) | payer BC, MEDICARE ==
[2020-10-20] MEDS ORDERED: hydrALAZINE 25 MG TAB PO SCH (13:30)
[2020-10-20] MEDS ORDERED: Iopamidol-370 76% 500 ML 1 ML ONE (13:32)
[2020-10-20] MEDS ORDERED: hydrALAZINE 20 MG/ML VIAL ONE (14:13)
[2020-10-20] MEDS ORDERED: hydrALAZINE 25 MG TAB ONE (14:23)
[2020-10-20 14:24] LABS: Bacteria/HPF None Seen HPF (None Seen); Bilirubin Negative (Negative); Blood, Urine 1+ (Negative); Clarity Clear (Clear); Glucose, Urine (Dipstick) Greater than 1000 mg/dL (Negative); Ketone, Urine Negative (Negative); Leukocyte Negative Leu/uL (Negative); Nitrite Negative (Negative); Protein, Urine (Dipstick) 200 mg/dL (Neg-Trace); RBC/HPF 0-3 HPF (0-3); Specific Gravity, Urine 1.021 (1.002-1.036); Squamous Epithelial 0-3 HPF (0-3); Urobilinogen Normal mg/dL (Less than 2)
[2020-10-20 16:33] LABS: Hemoglobin 16.5 g/dL (14.0-18.0); Mean Corpuscular HGB CONC 35.4 g/dL (32.0-36.0); Mean Corpuscular Hemoglobin 32.5 pg (27.0-31.0); Mean Corpuscular Volume 91.8 fL (78.0-98.0); RBC Distribution Width 12.6 % (11.5-14.5); Red Blood Cell (RBC) Count 5.09 mill/uL (4.70-6.10); White Blood Cell (WBC) Count 10.4 thou/uL (4.8-10.8)
--- NOTE | 2020-10-20 16:40 | RAD ---
Chest one view HISTORY: Chest pain. COMPARISON: 01/18/2018. FINDINGS: Cardiac silhouette is magnified and upper limits of normal in size. Pulmonary vasculature a re unremarkable. Mediastinum is midline. No lobar consolidation or evidence of pneumothorax. IMPRESSION : No acute abnormalities are demonstrated.
[2020-10-20 16:49] LABS: #Basophils 0.1 thou/uL (0.0-0.2); #Eosinphils 0.2 thou/uL (0.0-0.7); #Lymphocytes 3.7 thou/uL (1.20-3.40); #Monocytes 0.8 thou/uL (0.11-0.59); #Neutrophils 5.6 thou/uL (1.40-6.50); %Eosinophils 1.9 % (0.0-10.0); %Lymphocytes 35.6 % (21.0-51.0); %Monocytes 7.6 % (0.0-10.0); Large Platelets SLIGHT; MDiff Complete? YES; Mean Platelet Volume 10.6 fL (7.4-10.4); Platelet Count 116 thou/uL (130-400); Platelet Morphology Comment Appears Decreased; RBC Morphology Normal
[2020-10-20 16:53] LABS: ALT (SGPT) 271 U/L (8-55); AST (SGOT) 218 U/L (5-34); Albumin 4.2 g/dL (3.5-5.0); Alkaline Phosphatase 107 U/L (40-110); Anion Gap 17 mmol/L (10-20); BUN (Urea Nitrogen) 9 mg/dL (8.9-20.6); Bilirubin, Total 0.9 mg/dL (0.2-1.2); Calc. Creatinine Clearance 0 mL/min (70-130); Calcium 9.5 mg/dL (7.8-10.44); Carbon Dioxide 24 mmol/L (22-29); Chloride 105 mmol/L (98-107); Globulin 3.3 g/dL (2.4-3.5); Glucose 187 mg/dL (70-105); Potassium 3.3 mmol/L (3.5-5.1); Protein, Total 7.5 g/dL (6.0-8.3); Sodium 143 mmol/L (136-145)
[2020-10-20] MEDS ORDERED: Labetalol HCl 100 MG/20 ML VIAL ONE (16:56)
[2020-10-20] MEDS ORDERED: cefTRIAXone\\ROCEPHIN 2 GM VIAL ONE (16:58)
--- NOTE | 2020-10-20 18:16 | CT ---
CT Abdomen Pelvis W Con: 10/20/2020 5:50 PM CLINICAL INFORMATION: Right-sided flank pain. Increased swelling in the skin around his penis. COMPARISON: None. TECHNIQUE: Multiple contiguous axial images were obtained and a CT of the abdomen and pelvis with IV contrast. C oronal and sagittal reformats were performed. FINDINGS: Lower Chest: within normal limits. Abdomen: Liver: within normal limits. Bile Ducts: Normal caliber. Gallbladder: Removed Pancreas: within normal limits. Spleen: within normal limits. Adrenals: within normal limits. Kidneys: within normal limits. Pelvis: Reproductive Organs: No pelvic masses. There is thickening of the skin of the penis. Correlate with p hysical examination. Ureters: within normal limits. Bladder: within normal limits. Peritoneum: No ascites or free air, no fluid collection. Bowel: Normal caliber. Normal appendix. Mesentery and Retroperitoneum: No enlarged mesenteric or retroperitoneal lymph nodes. Vessels: Normal. Abdominal Wall: within normal limits. Bones: Degenerative changes in the spine. IMPRESSION: No evidence of acute intraabdominal or pelvic abnormality.
[2020-10-20] MEDS ORDERED: NIFEdipine XL 60 MG TAB PO SCH (19:45)
[2020-10-20] MEDS ORDERED: Ondansetron ODT 4 MG TAB PO PRN (20:52)
[2020-10-20] MEDS ORDERED: HYDROcodone/Acetaminophen 5/325 mg Tablet PO PRN ×4 (20:52→21:20)
[2020-10-20] MEDS ORDERED: Acetaminophen 325 MG TAB PO PRN (20:52)
[2020-10-20] MEDS ORDERED: Ondansetron PF 4 MG/2 ML Vial IVP PRN (20:52)
[2020-10-20] MEDS ORDERED: Famotidine 20 MG TAB PO SCH (21:00)
[2020-10-20] MEDS ORDERED: Enoxaparin Sodium 40 MG/0.4 ML SYRINGE SC SCH (21:00)
[2020-10-20] MEDS ORDERED: cloNIDine 0.1 MG TAB PO PRN (21:01)
[2020-10-20] MEDS ORDERED: traMADol HCl 50 MG TAB PO PRN (22:02)
[2020-10-20] MEDS ORDERED: Morphine 2 MG/ML VIAL SLOW IVP PRN (22:11)
[2020-10-20] MEDS ORDERED: cloNIDine 0.1 MG TAB ONE (22:13)
--- NOTE | 2020-10-20 22:45 | HP ---
ADDITIONAL ATTENDING PHYSICIAN: Brandon Fermin MD PRIMARY CARE PHYSICIAN: Jada, Dr. Anthony. CHIEF COMPLAINT: Swelling of the penis. HISTORY OF PRESENT ILLNESS: The patient is a 50-year-old male with a past medical history significant for chronic balanitis, prediabetes, hypertension, and anxiety, who presents to the Emergency Department for the above complaint. The patient reports that he has had chronic balanitis that he has been treating with fluconazole for the past 2 years, however, he ran out of fluconazole approximately two weeks ago. He reports that he maintains good hygiene by cleaning his penis with soap, water, and Epsom salt soaks. He reports over the last week he has had increased swelling and pain to his penis. He reports that it is tender to touch. He reports some associated dysuria. He denies any hematuria. He does report that he has chronic hematuria and is supposed to get scheduled for a cystoscopy, but it has not been scheduled at this time. He reports associated chills. He denies any fever. He reports right flank pain, described as intermediate, aching, exacerbated and relieved by nothing. He reports associated nausea. Denies vomiting, constipation, hematochezia/melena. He is sexually active, with his . He has never had an STI and is not concerned for any STIs. In the ER, he reports vague chest pain, located left side of his chest, described as aching, exacerbated and relieved by nothing. He denies any heart palpitations, lightheadedness, or swelling in his lower extremities. He denies any shortness of breath, cough, or wheezing. No history of COPD/asthma. No history of DVT/PE. Upon assessment, his chest pain had resolved. In the Emergency Department, the patient presented hypertensive with a blood pressure of 264/166, tachycardic with a heart rate of 117, normal respirations, SpO2 saturation, and afebrile. EKG was sinus tachycardia, 117 beats per minute with LVH, left axis deviation, and some T-wave inversions. His troponin was negative. D-dimer 0.38. Chest x-ray showed no acute process. CT of the abdomen and pelvis showed no acute process. Lactic acid 1.7. WBCs 10.4. UA; 1000 glucose, 1+ blood, and 4 to 6 wbc's. No nitrites or leukocyte esterase. The patient was given 1 L normal saline along with his night time home antihypertensive medications including hydralazine, losartan/hydrochlorothiazide, nifedipine. Labetalol 10 mg IV push was also given. The patient was also given Rocephin and 1 L normal saline. PAST MEDICAL HISTORY: 1. Hypertension. 2. Prediabetes. 3. Anxiety. 4. Dyslipidemia. 5. Chronic balanitis. PAST SURGICAL HISTORY: 1. Hernia. 2. Cholecystectomy. 3. Right wrist surgery. SOCIAL HISTORY: The patient lives with his family. He denies any history of smoking, heavy alcohol use, or illicit drug use. He is independent and ambulates without any assistance. FAMILY HISTORY: Positive for cardiac disease. ALLERGIES: NO KNOWN DRUG ALLERGIES. MEDICATIONS: 1. Isosorbide mononitrate 60 mg p.o. q.a.m. 2. Losartan/hydrochlorothiazide 50 mg/12.5 mg one tablet p.o. daily. 3. Nifedipine extended release 60 mg p.o. daily. 4. Hydralazine 100 mg p.o. t.i.d. 5. Nortriptyline 25 mg p.o. at bedtime. 6. Metoprolol succinate 200 mg p.o. daily. 7. Fenofibrate 145 mg p.o. daily. 8. Fluconazole 200 mg p.o. daily. 9. Duloxetine 30 mg p.o. daily. 10. Pantoprazole 40 mg p.o. daily. 11. Hydralazine 10 mg p.o. daily. REVIEW OF SYSTEMS: All review of systems are negative unless otherwise stated in HPI. PHYSICAL EXAMINATION: VITAL SIGNS: Temperature 99.3, BP 220/110, heart rate 117, and respirations 18, and oxygen saturation 97% on room air. CONSTITUTIONAL: The patient presented afebrile, hypertensive, and tachycardic, nontoxic in appearance, uncomfortable. HEAD: Atraumatic and normocephalic. EYES: Pupils are equal, round, and reactive to light. Extraocular muscles intact. ENT: Ear exam normal. No drainage. No bleeding. Bilateral TMs intact. Nares patent. Oropharynx is clear. Uvula midline. Tacky mucous membranes. NECK: Full range of motion. No cervical spinous tenderness. Supple. Trachea midline. RESPIRATORY/CHEST: Respirations even and unlabored. Clear to auscultation. No rhonchi, wheezes, or rales. CARDIOVASCULAR: S1 and S2 appreciated. Tachycardic. No murmurs, rubs, or gallops. ABDOMEN: Soft and nontender to palpation. Active bowel sounds. No guarding. No rigidity. No rebound tenderness. Negative Rovsing sign. Negative Cee sign. BACK: Full range of motion. No central spinous tenderness. No CVA tenderness. GENITOURINARY: Male. The patient's penis is contracted within his foreskin. Foreskin is edematous. Unable to retract the foreskin to visualize the glans and the shaft of the penis. There is some light yellow, clear discharge. The scrotum is mildly red. The right testicle is tender to touch and palpation. EXTREMITIES: Upper extremities, bilaterally full range of motion. Sensation intact. Strength intact. Palpable radial pulses. Lower extremities, full range of motion. Normal strength. Sensation intact. Palpable pedal pulses. No swelling. NEUROLOGIC: The patient is alert and oriented to person, place, and time, follows commands. GCS of 15. SKIN: Clean, dry, and intact. PSYCHIATRIC: Awake and alert, follows commands. No SI/HI. LABS AND DIAGNOSTICS: Sodium 143, potassium 3.3, chloride 105, carbon dioxide 24, anion gap 17, BUN is 9, creatinine 0.79, GFR 90, glucose 187, lactic acid 1.7, calcium 9.5, total bilirubin 0.9, AST 218, ALT 271, and alkaline phosphatase 107. Troponin 0.010. WBCs 10.4, hemoglobin 16.5, hematocrit 46.7, and platelets 116. D-dimer 0.38. UA; 200 protein, 1000 glucose, 1+ blood, and 4 to 6 wbc's. Chest x-ray was negative for any acute cardiopulmonary process. CT of the abdomen and pelvis was negative for any acute intraabdominal or pelvic abnormality. IMPRESSION: 1. Phimosis, acute. 2. Balanitis, acute on chronic 3. Right testicular pain, acute. 4. Hypertensive urgency. 5. Transaminitis, chronic. 6. Prediabetes. 7. Anxiety. PLAN: The patient presented with significant swelling around his penis resembling phimosis. He has a history of chronic balanitis, there was clear, yellow discharge. He also reported right testicular pain. He presented tachycardic and hypertensive. Although he had no white count, and his lactic acid was 1.7, there is concern for acute on chronic infection. The patient was given Rocephin in the ER. We will order testicular ultrasound, start Levaquin. We will consult Urology non-emergently. Blood and urine cultures are pending. Given the patient's elevated liver enzymes, we will hold his fluconazole home medication for now, however, LFTs have been elevated in the past. In terms of the patient's hypertension, the patient was given all of his home medications that he takes at night in the Emergency Department. We will add clonidine p.r.n. We will continue to monitor blood pressure. The patient did report an episode of chest pain, we will trend troponins. EKG showed sinus tachycardia with LVH, no ST elevations. The patient presented with a blood glucose of 187 and reports being prediabetic. We will order a hemoglobin A1c. For the patient's anxiety, I will restart his home dose of duloxetine. We will start Protonix for GI prophylaxis. Lovenox for deep venous thrombosis prophylaxis. The patient is a full code. Discussed the case with Dr. Fermin, attending physician. Job ID: [id number] MTDD
[2020-10-20 23:02] LABS: Amphetamine Not Detected (NotDetected); Barbiturates Screen Not Detected (NotDetected); Benzodiazepine Screen Not Detected (NotDetected); Cocaine Metabolite Screen Not Detected (NotDetected); Medtox Control Line Valid? VALID (VALID); Medtox Reader # READER 1; Methadone Not Detected (NotDetected); Methamphetamine Not Detected (NotDetected); Opiate Screen Not Detected (NotDetected); Oxycodone Screen Not Detected (NotDetected); Phencyclidine (PCP) Not Detected (NotDetected); THC/Cannabinoid Screen Not Detected (NotDetected); Tricyclic Screen Not Detected (NotDetected)
[2020-10-20] MEDS: Ketorolac Tromethamine 30 MG/ML VIAL IVP PRN (23:32)
[2020-10-20 23:42] VITALS: BMI 42.7
[2020-10-21] MEDS: Enoxaparin Sodium 40 MG/0.4 ML SYRINGE SC SCH ×2 (03:28→19:07)
[2020-10-21 04:46] LABS: #Basophils 0.2 thou/uL (0.0-0.2); #Eosinphils 0.2 thou/uL (0.0-0.7); #Lymphocytes 3.6 thou/uL (1.20-3.40); #Monocytes 0.8 thou/uL (0.11-0.59); #Neutrophils 5.5 thou/uL (1.40-6.50); %Basophils 1.7 % (0.0-1.0); %Eosinophils 2.3 % (0.0-10.0); %Monocytes 7.6 % (0.0-10.0); %Neutrophils 53.4 % (42.0-75.0); Hemoglobin 15.1 g/dL (14.0-18.0); Mean Corpuscular HGB CONC 33.5 g/dL (32.0-36.0); Mean Corpuscular Hemoglobin 30.6 pg (27.0-31.0); Mean Corpuscular Volume 91.3 fL (78.0-98.0); Mean Platelet Volume 10.8 fL (7.4-10.4); Platelet Count 122 thou/uL (130-400); RBC Distribution Width 12.6 % (11.5-14.5); Red Blood Cell (RBC) Count 4.95 mill/uL (4.70-6.10); White Blood Cell (WBC) Count 10.2 thou/uL (4.8-10.8)
[2020-10-21 04:52] LABS: Hemoglobin A1c 7.9 % (4.0-6.0)
[2020-10-21 05:14] LABS: ALT (SGPT) 242 U/L (8-55); AST (SGOT) 170 U/L (5-34); Acetaminophen Less than 6.0 mcg/mL (10.0-30.0); Albumin 3.9 g/dL (3.5-5.0); Alcohol Less than 10 mg/dL (Less than 10); Alkaline Phosphatase 84 U/L (40-110); Anion Gap 14 mmol/L (10-20); BUN (Urea Nitrogen) 9 mg/dL (8.9-20.6); Calc. Creatinine Clearance 174 mL/min (70-130); Calcium 8.7 mg/dL (7.8-10.44); Carbon Dioxide 26 mmol/L (22-29); Chloride 103 mmol/L (98-107); Glucose 158 mg/dL (70-105); Protein, Total 6.9 g/dL (6.0-8.3); Salicylate Less than 8.0 mg/dL (15.0-30.0); Sodium 140 mmol/L (136-145)
[2020-10-21 05:31] LABS: HBCM Index 0.07 S/CO (0-0.79); HBSAg Index 0.25 S/CO (0-0.99); Hep A IgM AB Non-Reactive (NonReactive); Hep A IgM S/CO 0.17 S/CO (0-0.79); Hep B Surf Ag Non-Reactive S/CO (NonReactive); Hep C IgG Ab Non-Reactive (NonReactive); Hep C Index 0.28 S/CO (0-0.79); Hepatitis B Core IgM Abs Non-Reactive (NonReactive)
[2020-10-21] MEDS ORDERED: Fluconazole 100 MG TAB PO SCH (09:00)
[2020-10-21] MEDS: Ketorolac Tromethamine 30 MG/ML VIAL IVP PRN ×3 (09:06→23:52)
[2020-10-21] MEDS ORDERED: Potassium Chloride 20 MEQ TAB PO SCH (09:15)
--- NOTE | 2020-10-21 11:37 | ULT ---
SCROTAL ULTRASOUND WITH COLOR AND SPECTRAL DOPPLER IMAGING: Date: 10/21/2020 HISTORY: Right testicular tenderness. FINDINGS: Right testis measures 4.9 x 3.3 x 2.5 cm. Left testis measures 4.7 x 3.0 x 2.5 cm. Small bilateral hydroceles. Dilated veins in left scrotum and inguinal region, evidence for some varicocele changes. No intratesticular solid mass. Vascular flow documented bilaterally. No evidence for testicular torsion. IMPRESSION: 1. Small to trace bilateral hydroceles. 2. Possible left-sided varicocele. 3. No evidence for solid intratesticular mass or testicular torsion. POS: OFF
[2020-10-21 12:17] LABS: Syphilis Antibody Nonreactive (Nonreactive); Syphilis Antibody Index 0.06 S/CO (<1.00 Non-Reactive)
[2020-10-21 12:18] LABS: HIV (1/2) Antibody/Antigen Non-Reactive (NonReactive); HIV 1/2 INDEX 0.12 S/CO (<1.00)
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
[2020-10-21] MEDS ORDERED: Enoxaparin Sodium 40 MG/0.4 ML SYRINGE SC SCH (18:00)
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
[2020-10-21] MEDS ORDERED: hydrALAZINE 25 MG TAB PO SCH (21:00)
[2020-10-21] MEDS ORDERED: Dextrose 50% Abboject 50 ML SYRINGE SLOW IVP PRN (21:20)
[2020-10-21] MEDS ORDERED: HumaLOG 300 UNITS/3 ML VIAL SC PRN (21:20)
[2020-10-21] MEDS ORDERED: Dextrose 5% in Water 1,000 ML IV PRN (21:20)
[2020-10-22 06:51] LABS: Hemoglobin 15.9 g/dL (14.0-18.0); Mean Corpuscular HGB CONC 32.9 g/dL (32.0-36.0); Mean Corpuscular Hemoglobin 30.6 pg (27.0-31.0); Mean Platelet Volume 10.7 fL (7.4-10.4); Platelet Count 131 thou/uL (130-400); RBC Distribution Width 12.7 % (11.5-14.5); White Blood Cell (WBC) Count 9.3 thou/uL (4.8-10.8)
[2020-10-22 06:57] LABS: Albumin (w/Testosterone Panel) 4.1 g/dL
[2020-10-22 07:04] LABS: Anion Gap 15 mmol/L (10-20); BUN (Urea Nitrogen) 10 mg/dL (8.9-20.6); Calc. Creatinine Clearance 146 mL/min (70-130); Calcium 8.7 mg/dL (7.8-10.44); Carbon Dioxide 23 mmol/L (22-29); Chloride 104 mmol/L (98-107); Glucose 154 mg/dL (70-105); Potassium 3.4 mmol/L (3.5-5.1); Sodium 139 mmol/L (136-145)
[2020-10-22 07:20] LABS: Testosterone, Free 59.3 pg/mL (47-244); Testosterone, Total 300.2 ng/dL (221-716)
[2020-10-22] MEDS ORDERED: Enoxaparin Sodium 40 MG/0.4 ML SYRINGE SC SCH (09:00)
[2020-10-22] MEDS ORDERED: Hydrochlorothiazide 25 MG TAB PO SCH (09:00)
[2020-10-22] MEDS ORDERED: NIFEdipine XL 60 MG TAB PO SCH (09:00)
[2020-10-22] MEDS ORDERED: DULoxetine 30 MG CAP PO SCH (09:00)
[2020-10-22] MEDS: Ketorolac Tromethamine 30 MG/ML VIAL IVP PRN ×2 (09:24→14:42)
[2020-10-22] MEDS ORDERED: Spironolactone 25 MG TAB PO SCH (11:00)
[2020-10-22] MEDS ORDERED: metFORMIN 500 MG TAB PO SCH ×2 (11:00→17:00)
--- NOTE | 2020-10-22 12:58 | ULT ---
Exam: Bilateral renal ultrasound HISTORY: Uncontrolled hypertension. COMPARISON: 01/11/2018 FINDINGS: Right kidney: Normal cortical echotexture. No hydronephrosis. There is right renal cortical thinning. Right kidney measurements: 6.2 x 14.3 x 5.7 cm. Left kidney: Normal cortical echotexture. No hydronephrosis. There is left renal cortical thinning. Left kidney measurements 6.1 x 13.3 x 6.7 cm. Urinary bladder: Normal mucosa. IMPRESSION: 1. No hydronephrosis 2. Bilateral renal cortical thinning.
--- NOTE | 2020-10-22 16:57 | PDOC.DS.DS ---
Provider - Provider Date of Admission: 10/21/20 14:43 Date of Discharge: 10/22/20 Admitting Provider: Brandon Fermin MD Consultations: Urology (Dr. Pedro Egan) Primary Care Physician: NO PCP PROVIDER Course - Hospital Course Hospital Course: Discharge Diagnoses: 1. Hypertensive Urgency 2. Chest pain 3. Newly diagnosed diabetes 4. Balanitis - chronic 5. Chronic shortness of breath 6. Hypokalemia Brief HPI: This is a 50 year old male who came to the ER due to increasing welling in his penis. He had been unable to retract his foreskin on his penis and it was swollen. He was incidentally found to have a blood pressure of 264/166. He was admitted for hypertensive urgency. Hospital Course: Hypertensive Urgency: the patient was resumed on his home medications. His diastolic blood pressure was still over 100 after restarting his home medications. He did have some hypokalemia so there was a thought of possible renal artery stenosis. Renin/aldosterone level was ordered but was not able to be done prior to discharge. He was started on spironolactone empirically with improvement in his blood pressure to 130/80 systolic. The patient should follow up with his primary care doctor in a week. Balanitis/Phimosis: the patient was noted to have complete retraction of his penile shaft. Urology was consulted, recommended circumcision however the patient would have to lose a significant amount of weight prior to surgery. He had fungal cultures, viral cultures and bacterial cultures sent which were pending. HIV and syphilis were negative. Morbid obesity: the patient has a BMI of 41, he was seen by the chief unit forester and advised to limit carb intake and consider a ketogenic diet. Newly Diagnosed Diabetes: the patient was prediabetic and had a HbA1C of 7.9. He was started on metformin on discharge. He should follow up with his PCP in a week . Pertinent Studies: Bilateral renal ultrasound 10/22: no hydronephrosis. Bilateral renal cortical thinning Testicular doppler 10/21: small to trace bilateral hydroceles. Left sided varicocele. No testicular mass CT abdomen 10/20: no acute abnormality Chest X ray 10/20: no acute abnormalities Resuscitation Status: 10/20/20 20:52 Resuscitation Status Routine Co-Sign Provider: Resuscitation Status: FULL: Full Resuscitation Discussed with: patient - Labs Lab Results: 10/22/20 06:32 10/22/20 06:32 Abnormal Lab Results - Last 48 hrs 10/21/20 04:33: Plt Count 122 L, MPV 10.8 H, Basophils % 1.7 H, Lymphocytes # 3.6 H, Monocytes # 0.8 H 10/21/20 04:33: Hemoglobin A1c 7.9 H 10/21/20 04:33: Potassium 3.0 L, AST 170 H, ALT 242 H, Salicylates Less than 8.0 L, Acetaminophen Less than 6.0 L 10/22/20 06:32: Potassium 3.4 L 10/22/20 06:32: MPV 10.7 H Microbiology - Entire Visit 10/20/20 17:00 Venous blood - Left Arm Blood Culture - Preliminary NO GROWTH AT 48 HOURS 10/20/20 17:00 Venous blood - Right Hand Blood Culture - Preliminary NO GROWTH AT 48 HOURS 10/21/20 18:30 Urethra - Drainage Gram Stain - Final 10/21/20 18:30 Urethra - Drainage Genital Culture - Preliminary 10/20/20 14:02 Urine voided Urine Culture - Final - Physical Exam Vitals: Vital Signs (12 hours) Temp Pulse Resp BP Pulse Ox 10/22/20 11:59 97.7 F 99 13 158/102 H 95 10/22/20 09:20 99 10/22/20 07:50 96 10/22/20 07:35 97.6 F 99 16 168/104 H 96 Weight Weight 244 lb 3.2 oz Physical Exam: The patient was seen and examined on the day of discharge. General: patient morbidly obese CVS: RRR, no murmurs, rubs, gallops Lungs: CTAB Abdomen: +BS, soft, nontender, nondistended Extremities: no edema Problem - Time spent with Patient (mins): 35 Plan - Discharge Medications Prescriptions: RX: Spironolactone [Aldactone] 25 mg PO QAM-WM #30 tab RX: metFORMIN [Glucophage] 500 mg PO BID-WM #60 tab Home Medications: Medication Instructions Recorded Confirmed Type RX: Isosorbide Mononitrate 60 mg PO DAILY #30 tab.er.24h 01/12/18 10/20/20 Rx [Isosorbide Mononitrate ER] RX: Metoprolol Succinate [Toprol 200 mg PO DAILY #30 tab 01/12/18 10/20/20 Rx XL] RX: NIFEdipine [Procardia XL] 60 mg PO DAILY #30 tab 01/12/18 10/20/20 Rx RX: Fenofibrate Nanocrystallized 145 mg PO DAILY #30 tab 01/19/18 10/20/20 Rx [Tricor] RX: DULoxetine [Cymbalta] 30 mg PO DAILY 10/20/20 10/20/20 History RX: Lamotrigine [lamoTRIgine] 25 mg PO DAILY 10/20/20 10/20/20 History RX: Pantoprazole [Protonix] 40 mg PO DAILY 10/20/20 10/20/20 History RX: hydrALAZINE HCl 100 mg PO HS 10/20/20 10/20/20 History RX: hydrOXYzine [Atarax] 10 mg PO TID 10/20/20 10/20/20 History RX: Olmesartan/Hydrochlorothiazide 1 each PO DAILY 10/22/20 10/22/20 History [Olmesartan-Hctz 20-12.5 mg Tab] RX: Spironolactone [Aldactone] 25 mg PO QAM-WM #30 tab 10/22/20 Rx RX: metFORMIN [Glucophage] 500 mg PO BID-WM #60 tab 10/22/20 Rx Allergies: codeine Allergy (Verified 10/21/20 02:54) mary lou Allergy (Verified 10/20/20 22:58) swelling/numbness per pt allergic to mary lou peelings, causes swelling/numbness to lips - Discharge Instructions Activity:: Activity as Tolerated Nourishment:: Heart Healthy Diet - Follow up Plan Referrals: PROVIDER,NO PCP [Primary Care Provider] - Disposition: HOME Quality - Care Measures CORE MEASURES:: N/A
[2020-10-22 17:06] VITALS: BP 138/87; TEMP 98.1
[2020-10-22 23:14] LABS: Chlam.trachomatis by PCR,Urine Not Detected (NotDetected)
[2020-10-23] MEDS ORDERED: Spironolactone 25 MG TAB PO SCH (08:00)
== END 2020-10-22 18:30 | disposition home or self-care (01) | DRG 729 ==
LOC: ERS 11:58 → 2NO 21:19 → OBSVTOIN 10-21 14:43
PROVIDERS: ADMIT Student in an Organized Health Care Education/Training Program; ATTEND Student in an Organized Health Care Education/Training Program
DX: N48.0 Leukoplakia of penis (principal); Z68.41 Body mass index [BMI] 40.0-44.9, adult; N43.3 Hydrocele, unspecified; I86.1 Scrotal varices; N47.1 Phimosis; I16.0 Hypertensive urgency; I10 Essential (primary) hypertension; E11.9 Type 2 diabetes mellitus without complications; E87.6 Hypokalemia; E66.01 Morbid (severe) obesity due to excess calories; R74.01 Elevation of levels of liver transaminase levels; F41.9 Anxiety disorder, unspecified; G43.909 Migraine, unspecified, not intractable, without status migrainosus; E78.5 Hyperlipidemia, unspecified; Z28.21 Immunization not carried out because of patient refusal; Z90.49 Acquired absence of other specified parts of digestive tract; Z82.49 Family history of ischemic heart disease and other diseases of the circulatory system; Z79.899 Other long term (current) drug therapy
CPT/HCPCS: 36415; 36416; 71045; 74177; 76770; 76870; 80048; 80053; 80074; 80306; 80307; 81003; 81015; 83036; 83605; 84270; 84403; 84484; 85025; 85027; 85379; 86780; 87040; 87070; 87077; 87086; 87102; 87389; 87491; 87529; 87591; 93005; 93976; G0103; J0360; J0696; J1650; J1885; J1956; Q9967

== ENCOUNTER 2021-03-05 13:44 | Outpatient (CLI) | payer BC ==
[2021-03-05 14:45] LABS: Bilirubin Neg (Negative); Blood, Urine 10 (Negative); Clarity Clear (Clear); Glucose, Urine (Dipstick) Normal (Negative); Ketone, Urine Negative (Negative); Leukocyte 25 (Negative); Nitrite Negative (Negative); Protein, Urine (Dipstick) 100 mg/dl (Neg-Trace); Specific Gravity, Urine 1.025 (1.002-1.036)
[2021-03-05 14:54] LABS: Hemoglobin 15.2 g/dL (13.5-17.5); Mean Corpuscular Hemoglobin 30.5 pg (27.0-33.0); Mean Corpuscular Volume 89.6 fl (81.2-95.1); Mean Platelet Volume 12.5 fl (7.4-10.4); Platelet Count 127 10x3/uL (150-450); RBC Distribution Width 13.3 % (11.5-14.5); Red Blood Cell (RBC) Count 4.99 10x6/uL (4.32-5.72); White Blood Cell (WBC) Count 8.3 10x3/uL (3.5-10.5)
[2021-03-05 15:03] LABS: Anion Gap 16 mmol/L (10-20); BUN (Urea Nitrogen) 7 mg/dL (8.9-20.6); Calc. Creatinine Clearance 0 mL/min (70-130); Calcium 9.8 mg/dL (7.8-10.44); Carbon Dioxide 23 mmol/L (22-29); Chloride 109 mmol/L (98-107); Glucose 106 mg/dL (70-105); Potassium 3.9 mmol/L (3.5-5.1); Sodium 144 mmol/L (136-145)
[2021-03-05 15:04] LABS: INR-International Normal Ratio 1.1; PTT 28.9 sec (22.0-33.0); Prothrombin Time 11.8 sec (9.5-12.1)
[2021-03-05 15:05] LABS: Bacteria/HPF Rare-Few HPF (None Seen); RBC/HPF 0-3 HPF (0-3); Squamous Epithelial 0-3 HPF (0-3)
[2021-03-06 01:51] LABS: SARS-CoV-2 PCR by NAA Not Detected (NotDetected)
== END 2021-03-05 13:45 | disposition home or self-care (01) ==
LOC: LABBT 13:44
PROVIDERS: ATTEND Urology
DX: Z01.818 Encounter for other preprocedural examination (principal); S09.90XA Unspecified injury of head, initial encounter; E11.22 Type 2 diabetes mellitus with diabetic chronic kidney disease; N18.9 Chronic kidney disease, unspecified; N48.1 Balanitis; H81.10 Benign paroxysmal vertigo, unspecified ear; N35.911 Unspecified urethral stricture, male, meatal; R81 Glycosuria; E66.01 Morbid (severe) obesity due to excess calories
CPT/HCPCS: 80048; 81001; 85027; 85610; 85730; 87077; 87086; 87635; U0003; U0005

== ENCOUNTER 2021-03-10 06:09 | Day surgery (SDC) | payer MEDICARE, BC ==
[2021-03-09 09:23] VITALS: BMI 40.8
[2021-03-10] MEDS ORDERED: Levofloxacin 500 mg/D5W 100 ml Premix Bag ONE (06:30)
[2021-03-10] MEDS ORDERED: Iothalamate Meglumine 60% 50 ML VIAL FS ONE (06:46)
[2021-03-10] MEDS ORDERED: Fentanyl 100 MCG/2 ML VIAL ONE ×3 (06:50→09:20)
[2021-03-10] MEDS ORDERED: Ondansetron PF 4 MG/2 ML Vial ONE (07:37)
[2021-03-10] MEDS ORDERED: PROPOFOL 200 MG/20 ML VIAL ONE (07:37)
[2021-03-10] MEDS ORDERED: Dexamethasone 20 MG/5 ML VIAL ONE (07:37)
[2021-03-10] MEDS ORDERED: Lidocaine 1% PF 5 ML VIAL ONE (07:37)
[2021-03-10] MEDS ORDERED: ePHEDrine Sulfate 50 MG/10 ML VIAL ONE (07:37)
[2021-03-10] MEDS ORDERED: Bacitracin Zinc Ointment 30 gm TUBE ONE (08:26)
[2021-03-10] MEDS ORDERED: diphenhydrAMINE 50 MG/ML VIAL ONE (09:39)
[2021-03-10] MEDS ORDERED: HYDROcodone/Acetaminophen 5/325 mg Tablet ONE (11:02)
== END 2021-03-10 12:03 | disposition home or self-care (01) ==
LOC: SDC 06:09
PROVIDERS: ATTEND Urology
PROC: 0TND8ZZ Release Urethra, Via Natural or Artificial Opening Endoscopic (ICD-10-PCS; principal; 2021-03-10)
PROC: 0VBSXZX Excision of Penis, External Approach, Diagnostic (ICD-10-PCS; 2021-03-10)
DX: N35.912 Unspecified bulbous urethral stricture, male (principal); E66.01 Morbid (severe) obesity due to excess calories; N48.0 Leukoplakia of penis; Q55.64 Hidden penis; N47.1 Phimosis; E78.1 Pure hyperglyceridemia; I10 Essential (primary) hypertension; G47.33 Obstructive sleep apnea (adult) (pediatric); E11.9 Type 2 diabetes mellitus without complications; H81.10 Benign paroxysmal vertigo, unspecified ear; Z68.41 Body mass index [BMI] 40.0-44.9, adult; Z87.828 Personal history of other (healed) physical injury and trauma; Z79.84 Long term (current) use of oral hypoglycemic drugs; Z79.899 Other long term (current) drug therapy; Z88.5 Allergy status to narcotic agent; Z91.018 Allergy to other foods
CPT/HCPCS: 52276; 54100; 74420; Q9961; 88304; J1100; J1200; J1956; J2405; J2704; J3010

== ENCOUNTER 2021-09-29 16:46 | Inpatient (IN) | payer BC, MEDICARE ==
[~2021-09-29 16:46] MED LIST changes: -ISOVUE-370 76%-LOCM 1 ML ONE; +Iopamidol-370 76% 500 ML 1 ML ONE
[2021-09-29 17:16] LABS: #Basophils 0.1 thou/uL (0.0-0.2); #Eosinphils 0.3 thou/uL (0.0-0.7); #Lymphocytes 3.3 thou/uL (1.20-3.40); #Monocytes 0.9 thou/uL (0.11-0.59); #Neutrophils 6.2 thou/uL (1.40-6.50); %Eosinophils 2.9 % (0.0-10.0); %Lymphocytes 30.5 % (21.0-51.0); %Monocytes 8.5 % (0.0-10.0); %Neutrophils 57.2 % (42.0-75.0); Hemoglobin 17.3 g/dL (14.0-18.0); Mean Corpuscular HGB CONC 34.3 g/dL (32.0-36.0); Mean Corpuscular Hemoglobin 31.1 pg (27.0-31.0); Mean Corpuscular Volume 90.6 fL (78.0-98.0); Mean Platelet Volume 10.7 fL (7.4-10.4); Platelet Count 126 thou/uL (130-400); RBC Distribution Width 12.8 % (11.5-14.5); Red Blood Cell (RBC) Count 5.58 mill/uL (4.70-6.10); White Blood Cell (WBC) Count 10.8 thou/uL (4.8-10.8)
[2021-09-29] MEDS ORDERED: PROVENTIL INHALER 6.7 G (200 INHALATIONS) ONE ×2 (17:25→19:28)
[2021-09-29] MEDS ORDERED: cefTRIAXone\\ROCEPHIN 1 GM VIAL ONE ×2 (17:25→17:39)
[2021-09-29] MEDS ORDERED: Acetaminophen 325 MG TAB ONE (17:25)
[2021-09-29] MEDS ORDERED: Azithromycin 500 MG VIAL ONE (17:47)
[2021-09-29] MEDS ORDERED: Albuterol Sulfate 2.5 mg/3 ml Neb NEB SCH (18:00)
[2021-09-29 18:01] LABS: Bilirubin Negative (Negative); Blood, Urine Negative (Negative); Clarity Clear (Clear); Glucose, Urine (Dipstick) Normal (Negative); Ketone, Urine Negative (Negative); Leukocyte Negative Leu/uL (Negative); Nitrite Negative (Negative); Protein, Urine (Dipstick) 20 mg/dL (Neg-Trace); Specific Gravity, Urine 1.019 (1.002-1.036); Urobilinogen Normal mg/dL (Less than 2)
[2021-09-29 18:02] LABS: CKMB 1.6 ng/mL (0-6.6)
[2021-09-29 18:27] LABS: ALT (SGPT) 189 U/L (8-55); AST (SGOT) 126 U/L (5-34); Albumin 4.4 g/dL (3.5-5.0); Alkaline Phosphatase 86 U/L (40-110); Anion Gap 17 mmol/L (10-20); BUN (Urea Nitrogen) 11 mg/dL (8.9-20.6); Bilirubin, Total 0.7 mg/dL (0.2-1.2); Calc. Creatinine Clearance 0 mL/min (70-130); Calcium 10.1 mg/dL (7.8-10.44); Carbon Dioxide 20 mmol/L (22-29); Chloride 109 mmol/L (98-107); Globulin 3.6 g/dL (2.4-3.5); Glucose 146 mg/dL (70-105); Potassium 4.4 mmol/L (3.5-5.1); Sodium 142 mmol/L (136-145)
[2021-09-29] MEDS ORDERED: Azithromycin 250 MG TAB ONE ×2 (18:32→18:40)
[2021-09-29 18:54] LABS: SARS-CoV-2 NAA Rapid Test Not Detected (NotDetected)
[2021-09-29] MEDS ORDERED: Aspirin Chewable 81 MG TAB ONE (19:51)
[2021-09-29] MEDS ORDERED: Ondansetron PF 4 MG/2 ML Vial IVP PRN (20:33)
[2021-09-29] MEDS ORDERED: Acetaminophen 325 MG TAB PO PRN (20:33)
[2021-09-29] MEDS ORDERED: Labetalol HCl 100 MG/20 ML VIAL ONE (20:35)
[2021-09-29] MEDS ORDERED: Dextrose 50% Abboject 50 ML SYRINGE SLOW IVP PRN (20:49)
[2021-09-29] MEDS ORDERED: HumaLOG 300 UNITS/3 ML VIAL SC PRN ×2 (20:49)
[2021-09-29] MEDS ORDERED: Dextrose 5% in Water 1,000 ML IV PRN (20:49)
[2021-09-29] MEDS ORDERED: Benzonatate 100 MG CAP PO PRN (21:10)
[2021-09-29 21:26] LABS: Troponin I 0.058 ng/mL (< 0.028)
[2021-09-29] MEDS: hydrALAZINE 25 MG TAB PO SCH (22:49)
[2021-09-29 23:30] VITALS: BMI 40.6
[2021-09-29 23:58] LABS: Troponin I 0.053 ng/mL (< 0.028)
[2021-09-30 04:54] LABS: #Basophils 0.1 thou/uL (0.0-0.2); #Eosinphils 0.5 thou/uL (0.0-0.7); #Lymphocytes 3.3 thou/uL (1.20-3.40); #Monocytes 0.9 thou/uL (0.11-0.59); #Neutrophils 4.2 thou/uL (1.40-6.50); %Basophils 1.3 % (0.0-1.0); %Eosinophils 5.7 % (0.0-10.0); %Lymphocytes 36.6 % (21.0-51.0); %Monocytes 9.9 % (0.0-10.0); %Neutrophils 46.6 % (42.0-75.0); Hemoglobin 15.7 g/dL (14.0-18.0); Mean Corpuscular HGB CONC 33.8 g/dL (32.0-36.0); Mean Corpuscular Volume 91.7 fL (78.0-98.0); Mean Platelet Volume 10.1 fL (7.4-10.4); Platelet Count 114 thou/uL (130-400); RBC Distribution Width 12.8 % (11.5-14.5); Red Blood Cell (RBC) Count 5.06 mill/uL (4.70-6.10); White Blood Cell (WBC) Count 8.9 thou/uL (4.8-10.8)
[2021-09-30 05:00] LABS: Anion Gap 12 mmol/L (10-20); BUN (Urea Nitrogen) 7 mg/dL (8.9-20.6); Calc. Creatinine Clearance 172 mL/min (70-130); Calcium 9.4 mg/dL (7.8-10.44); Carbon Dioxide 25 mmol/L (22-29); Chloride 106 mmol/L (98-107); Glucose 125 mg/dL (70-105); Potassium 3.2 mmol/L (3.5-5.1); Sodium 140 mmol/L (136-145)
[2021-09-30 05:02] LABS: ALT (SGPT) 142 U/L (8-55); AST (SGOT) 79 U/L (5-34); Albumin 3.9 g/dL (3.5-5.0); Alkaline Phosphatase 70 U/L (40-110); Bilirubin, Direct 0.3 mg/dL (0.1-0.3); Bilirubin, Total 0.6 mg/dL (0.2-1.2); Protein, Total 6.8 g/dL (6.0-8.3)
[2021-09-30] MEDS ORDERED: Potassium Chloride 20 MEQ TAB PO SCH (07:30)
[2021-09-30] MEDS ORDERED: Hydrochlorothiazide 25 MG TAB PO SCH ×2 (09:00→21:00)
[2021-09-30] MEDS ORDERED: Non-Formulary Item 1 EACH (Spironolact/Hydrochlorothiazid [Spironolactone-Hctz 25-25 Tab] PO SCH (09:00)
[2021-09-30] MEDS ORDERED: Enoxaparin Sodium 40 MG/0.4 ML SYRINGE SC SCH (09:00)
[2021-09-30] MEDS ORDERED: FLU VACC QS2021-22(6MOS UP)/PF 60 MCG/0.5 ML SYRINGE IM ONE (09:00)
[2021-09-30] MEDS ORDERED: NIFEdipine XL 90 MG TAB PO SCH (09:00)
[2021-09-30] MEDS: hydrALAZINE 25 MG TAB PO SCH (09:08)
[2021-09-30] MEDS ORDERED: metFORMIN 500 MG TAB PO SCH (10:00)
[2021-09-30] MEDS ORDERED: Spironolactone 25 MG TAB PO SCH (10:00)
[2021-09-30] MEDS ORDERED: Labetalol HCl 100 MG/20 ML VIAL SLOW IVP PRN (11:58)
[2021-09-30] MEDS ORDERED: ALPRAZolam 0.25 MG TAB PO SCH ×2 (12:45→15:00)
[2021-09-30] MEDS ORDERED: hydrALAZINE 25 MG TAB PO SCH (15:00)
[2021-09-30 17:00] VITALS: BP 113/54; TEMP 97.8
[2021-09-30] MEDS ORDERED: Losartan 25 MG TAB PO SCH (21:00)
[2021-09-30] MEDS ORDERED: Fenofibrate Nanocrystallized 145 MG TAB PO SCH (21:00)
[2021-09-30] MEDS ORDERED: Non-Formulary Item 1 EACH (Olmesartan/Hydrochlorothiazide [Olmesartan-Hctz 20-12.5 Mg Tab PO SCH (21:00)
[2021-09-30] MEDS ORDERED: DULoxetine 30 MG CAP PO SCH (21:00)
[2021-10-01] MEDS ORDERED: metFORMIN 500 MG TAB PO SCH (08:00)
[2021-10-01] MEDS ORDERED: Spironolactone 25 MG TAB PO SCH (08:00)
[2021-10-01] MEDS ORDERED: NIFEdipine XL 90 MG TAB PO SCH (09:00)
== END 2021-09-30 20:00 | disposition home or self-care (01) | DRG 189 ==
LOC: ERS 16:46 → 2NO 20:26
PROVIDERS: ADMIT Internal Medicine; ATTEND Internal Medicine
DX: J96.01 Acute respiratory failure with hypoxia (principal); I24.8 Other forms of acute ischemic heart disease; Z68.41 Body mass index [BMI] 40.0-44.9, adult; Z20.822 Contact with and (suspected) exposure to COVID-19; J20.8 Acute bronchitis due to other specified organisms; I16.0 Hypertensive urgency; I10 Essential (primary) hypertension; E11.9 Type 2 diabetes mellitus without complications; K21.9 Gastro-esophageal reflux disease without esophagitis; G47.30 Sleep apnea, unspecified; E66.01 Morbid (severe) obesity due to excess calories; F41.9 Anxiety disorder, unspecified; D69.6 Thrombocytopenia, unspecified; Z90.49 Acquired absence of other specified parts of digestive tract; Z88.5 Allergy status to narcotic agent; Z79.899 Other long term (current) drug therapy; Z79.84 Long term (current) use of oral hypoglycemic drugs; Z91.018 Allergy to other foods; Z99.89 Dependence on other enabling machines and devices
CPT/HCPCS: 0240U; 36415; 36416; 71045; 71275; 74177; 80048; 80053; 80076; 81003; 82553; 83605; 83880; 84443; 84484; 85025; 87040; 87045; 87046; 87086; 87427; 87449; 90471; 90686; 93005; G0008; J0456; J0696; J1650; Q9967; U0003; U0005

== ENCOUNTER 2021-11-01 14:18 | Outpatient (CLI) | payer BC, MEDICARE ==
[2021-11-02 11:36] LABS: SARS-CoV-2 PCR by NAA Not Detected (NotDetected)
== END 2021-11-01 14:19 | disposition home or self-care (01) ==
LOC: LABBT 14:18
PROVIDERS: ATTEND Family Medicine
DX: Z01.812 Encounter for preprocedural laboratory examination (principal); Z20.822 Contact with and (suspected) exposure to COVID-19
CPT/HCPCS: U0003; U0005

== ENCOUNTER 2021-11-03 07:24 | Day surgery (SDC) | payer BC, MEDICARE ==
[2021-11-01 12:42] VITALS: BMI 40.6
[2021-11-03 07:54] LABS: Prothrombin Time 13.1 sec (12.0-14.7)
[2021-11-03 07:55] LABS: PTT 33.2 sec (22.9-36.1)
[2021-11-03] MEDS ORDERED: Midazolam HCl 2 mg/2 ml Vial ONE (08:12)
[2021-11-03] MEDS ORDERED: Sodium Bicarbonate 2.5 MEQ/5 ML VIAL ONE (08:12)
[2021-11-03] MEDS ORDERED: Fentanyl 100 MCG/2 ML VIAL ONE (08:12)
[2021-11-03] MEDS ORDERED: Lidocaine 1% PF 5 ML VIAL ONE ×3 (08:12→09:16)
[2021-11-03 08:21] VITALS: BP 122/84; TEMP 97.9
== END 2021-11-03 11:00 | disposition home or self-care (01) ==
LOC: ULT 07:24
PROVIDERS: ATTEND Family Medicine
PROC: 0FB03ZX Excision of Liver, Percutaneous Approach, Diagnostic (ICD-10-PCS; principal; 2021-11-03)
PROC: BF45ZZZ Ultrasonography of Liver (ICD-10-PCS; principal; 2021-11-03)
DX: K74.02 Hepatic fibrosis, advanced fibrosis (principal); K75.81 Nonalcoholic steatohepatitis (NASH); I12.9 Hypertensive chronic kidney disease with stage 1 through stage 4 chronic kidney disease, or unspecified chronic kidney disease; E11.22 Type 2 diabetes mellitus with diabetic chronic kidney disease; N18.31 Chronic kidney disease, stage 3a; G47.33 Obstructive sleep apnea (adult) (pediatric); K21.9 Gastro-esophageal reflux disease without esophagitis; Z79.84 Long term (current) use of oral hypoglycemic drugs; Z79.899 Other long term (current) drug therapy; Z88.5 Allergy status to narcotic agent; Z91.018 Allergy to other foods
CPT/HCPCS: 47000; 76942; 85610; 85730; 88307; 88313; J2250; J3010

== ENCOUNTER 2022-01-14 16:27 | Outpatient (CLI) | payer MEDICARE, BC | END 2022-01-14 16:28 | disposition home or self-care (01) | LOC: RAD 16:27 | PROVIDERS: ATTEND Family Medicine | DX: M25.532 Pain in left wrist (principal); M25.521 Pain in right elbow; R07.1 Chest pain on breathing | CPT/HCPCS: 71046 ==

== ENCOUNTER 2022-02-21 19:41 | Emergency (ER) | payer BC, MEDICARE ==
[2022-02-21] MEDS ORDERED: Acetaminophen 500 MG TAB ONE (20:48)
[2022-02-21 20:50] LABS: Hemoglobin 14.6 g/dL (14.0-18.0); Mean Corpuscular HGB CONC 34.9 g/dL (32.0-36.0); Mean Corpuscular Hemoglobin 32.6 pg (27.0-31.0); Mean Corpuscular Volume 93.4 fL (78.0-98.0); RBC Distribution Width 12.4 % (11.5-14.5); Red Blood Cell (RBC) Count 4.47 mill/uL (4.70-6.10); White Blood Cell (WBC) Count 7.3 thou/uL (4.8-10.8)
[2022-02-21 21:03] LABS: Band 2 % (5-11); Eosinophils 1 % (0-10); Lymphocytes 17 % (21-51); MDiff Complete? YES; Mean Platelet Volume 10.2 fL (7.4-10.4); Monocytes 12 % (0-10); Neutrophil 64 % (42-75); Platelet Count 108 thou/uL (130-400); Platelet Morphology Comment Appears Decreased; Reactive Lymphocytes 3 % (0-10)
[2022-02-21 21:43] LABS: SARS-CoV-2 NAA Rapid Test Not Detected (NotDetected)
== END 2022-02-21 20:59 | disposition home or self-care (01) ==
LOC: ERS 19:41
DX: J10.1 Influenza due to other identified influenza virus with other respiratory manifestations (principal); I10 Essential (primary) hypertension; R73.03 Prediabetes; Z20.822 Contact with and (suspected) exposure to COVID-19; Z79.84 Long term (current) use of oral hypoglycemic drugs; Z79.899 Other long term (current) drug therapy; K62.5 Hemorrhage of anus and rectum; K91.840 Postprocedural hemorrhage of a digestive system organ or structure following a digestive system procedure; E11.22 Type 2 diabetes mellitus with diabetic chronic kidney disease; N18.9 Chronic kidney disease, unspecified
CPT/HCPCS: 71045; 80053; 83036; 85025

== ENCOUNTER 2022-03-30 19:00 | Outpatient (CLI) | payer BC, MEDICARE | END 2022-03-30 19:01 | disposition home or self-care (01) | LOC: SLEEPLAB 19:00 | PROVIDERS: ATTEND Internal Medicine Pulmonary Disease | DX: G47.33 Obstructive sleep apnea (adult) (pediatric) (principal); R53.83 Other fatigue; E66.9 Obesity, unspecified; R06.83 Snoring | CPT/HCPCS: 95811 ==

== ENCOUNTER 2024-05-09 22:26 | Emergency (ER) | payer BC, MEDICARE ==
[2024-05-09] MEDS ORDERED: Labetalol HCl 100 MG/20 ML VIAL ONE (23:39)
[2024-05-09 23:48] LABS: #Basophils 0.05 10x3/uL (0.0-0.2); %Basophils 0.5 % (0.0-1.0); %Eosinophils 4.8 % (0.0-10.0); %Lymphocytes 28.3 % (21.0-51.0); %Neutrophils 58.2 % (42.0-75.0); Hematocrit 47.7 % (42.0-52.0); Hemoglobin 16.2 g/dL (14.0-18.0); Mean Corpuscular Hemoglobin 29.4 pg (27.0-31.0); Mean Corpuscular Volume 86.6 fL (78.0-98.0); Mean Platelet Volume 12.9 fL (7.4-10.4); Platelet Count 126 10x3/uL (130-400); RBC Distribution Width 14.1 % (11.5-14.5); Red Blood Cell (RBC) Count 5.51 mill/uL (4.70-6.10)
[2024-05-10 00:08] LABS: ALT (SGPT) 84 U/L (8-55); AST (SGOT) 55 U/L (5-34); Alkaline Phosphatase 113 U/L (40-110); Anion Gap 15 mmol/L (10-20); BUN (Urea Nitrogen) 11 mg/dL (8.4-25.7); Bilirubin, Total 0.4 mg/dL (0.2-1.2); Calc. Creatinine Clearance 0 mL/min (70-130); Calcium 9.7 mg/dL (7.8-10.44); Carbon Dioxide 22 mmol/L (22-29); Chloride 108 mmol/L (98-107); Estimated GFR 105; Globulin 3.8 g/dL (2.4-3.5); Glucose 219 mg/dL (70-105); Lipase 25 U/L (8-78); Potassium 3.8 mmol/L (3.5-5.1); Protein, Total 7.8 g/dL (6.0-8.3); Sodium 141 mmol/L (136-145)
[2024-05-10] MEDS ORDERED: Metoclopramide HCl 10 MG (2 mL) VIAL ONE (00:09)
[2024-05-10] MEDS ORDERED: diphenhydrAMINE 50 MG/ML VIAL ONE (00:09)
[2024-05-10] MEDS ORDERED: Acetaminophen 500 MG TAB ONE (00:09)
[2024-05-10 00:13] LABS: Troponin I Less than 0.010 ng/mL (< 0.028)
[2024-05-10 01:23] LABS: Bacteria/HPF None Seen HPF (None Seen); Bilirubin Negative (Negative); Blood, Urine Negative (Negative); CAUTI Indications for Culture Pelvic or flank pain; Clarity Clear (Clear); Glucose, Urine (Dipstick) Normal (Negative); Ketone, Urine Negative (Negative); Leukocyte Negative Leu/uL (Negative); Nitrite Negative (Negative); Protein, Urine (Dipstick) 50 mg/dL (Neg-Trace); RBC/HPF 0-3 HPF (0-3); Specific Gravity, Urine 1.012 (1.002-1.036); Squamous Epithelial 0-3 HPF (0-3); Urobilinogen Normal mg/dL (Less than 2); WBC/HPF 0-3 HPF (0-3)
[2024-05-10 01:29] LABS: Urine Culture Reflex No No
[2024-05-10] MEDS ORDERED: Dicyclomine 20 MG TAB ONE (04:38)
[2024-05-10] MEDS ORDERED: Iopamidol 370 76% 100 ML VIAL ONE (11:31)
== END 2024-05-10 04:44 | disposition home or self-care (01) ==
LOC: ERS 22:26
DX: S30.1XXA Contusion of abdominal wall, initial encounter (principal); I16.0 Hypertensive urgency; E11.9 Type 2 diabetes mellitus without complications; I10 Essential (primary) hypertension; Z55.6 Problems related to health literacy; X58.XXXA Exposure to other specified factors, initial encounter
CPT/HCPCS: 36415; 71045; 74177; 80053; 81001; 83605; 83690; 84484; 85025; 87040; 93005; 96374; 96375; J1200; J2765; Q9967

== ENCOUNTER 2024-07-25 17:44 | Emergency (ER) | payer BC, MEDICARE ==
[2024-07-25 18:35] LABS: #Basophils 0.07 10x3/uL (0.0-0.2); %Basophils 0.7 % (0.0-1.0); %Eosinophils 2.1 % (0.0-10.0); %Lymphocytes 28.4 % (21.0-51.0); %Monocytes 9.2 % (0.0-10.0); %Neutrophils 59.1 % (42.0-75.0); Hematocrit 49.5 % (42.0-52.0); Hemoglobin 16.8 g/dL (14.0-18.0); Mean Corpuscular HGB CONC 33.9 g/dL (32.0-36.0); Mean Corpuscular Hemoglobin 30.2 pg (27.0-31.0); Mean Corpuscular Volume 88.9 fL (78.0-98.0); Mean Platelet Volume 12.5 fL (7.4-10.4); Platelet Count 126 10x3/uL (130-400); RBC Distribution Width 14.7 % (11.5-14.5); Red Blood Cell (RBC) Count 5.57 mill/uL (4.70-6.10)
[2024-07-25 18:56] LABS: ALT (SGPT) 86 U/L (8-55); AST (SGOT) 52 U/L (5-34); Albumin 4.3 g/dL (3.5-5.0); Alkaline Phosphatase 93 U/L (40-110); Anion Gap 14 mmol/L (10-20); BUN (Urea Nitrogen) 11 mg/dL (8.4-25.7); Bilirubin, Total 0.8 mg/dL (0.2-1.2); Calc. Creatinine Clearance 0 mL/min (70-130); Carbon Dioxide 25 mmol/L (22-29); Chloride 106 mmol/L (98-107); Estimated GFR 92; Globulin 4.3 g/dL (2.4-3.5); Glucose 171 mg/dL (70-105); Potassium 3.8 mmol/L (3.5-5.1); Protein, Total 8.6 g/dL (6.0-8.3); Sodium 141 mmol/L (136-145)
[2024-07-25 19:00] LABS: Troponin I Less than 0.010 ng/mL (< 0.028)
[2024-07-25] MEDS ORDERED: Ketorolac Tromethamine 30 MG (1 mL) VIAL ONE (20:31)
== END 2024-07-25 20:51 | disposition home or self-care (01) ==
LOC: ERS 17:44
DX: R07.89 Other chest pain (principal); I10 Essential (primary) hypertension
CPT/HCPCS: 36415; 71045; 80053; 83880; 84484; 85025; 93005; 96374; J1885

== ENCOUNTER 2024-09-17 19:48 | Emergency (ER) | payer BC, MEDICARE ==
[2024-09-17] MEDS ORDERED: Boostrix 0.5 ML (Tdap) VIAL (>/=7 yrs of age) ONE (20:47)
== END 2024-09-17 20:56 | disposition home or self-care (01) ==
LOC: ERS 19:48
DX: S61.211A Laceration without foreign body of left index finger without damage to nail, initial encounter (principal); Z23 Encounter for immunization; W26.0XXA Contact with knife, initial encounter
CPT/HCPCS: 90471; 90715

== ENCOUNTER 2024-10-17 21:48 | Inpatient (IN) | payer BC, MEDICARE ==
[2024-10-17] MEDS ORDERED: Ketorolac Tromethamine 30 MG (1 mL) VIAL ONE (22:45)
[2024-10-17 22:56] LABS: #Basophils 0.05 10x3/uL (0.0-0.2); %Basophils 0.4 % (0.0-1.0); %Eosinophils 2.5 % (0.0-10.0); %Lymphocytes 28.9 % (21.0-51.0); %Monocytes 9.5 % (0.0-10.0); %Neutrophils 58.3 % (42.0-75.0); Hematocrit 47.1 % (42.0-52.0); Hemoglobin 16.2 g/dL (14.0-18.0); Mean Corpuscular HGB CONC 34.4 g/dL (32.0-36.0); Mean Corpuscular Hemoglobin 30.1 pg (27.0-31.0); Mean Corpuscular Volume 87.5 fL (78.0-98.0); Mean Platelet Volume 12.7 fL (7.4-10.4); Platelet Count 128 10x3/uL (130-400); RBC Distribution Width 13.4 % (11.5-14.5); Red Blood Cell (RBC) Count 5.38 mill/uL (4.70-6.10)
[2024-10-17] MEDS ORDERED: Sodium Chloride 0.9% 100 ML ONE (23:32)
[2024-10-17] MEDS ORDERED: Ampicillin/Sulbactam 3 GM VIAL ONE (23:32)
[2024-10-17] MEDS ORDERED: Acetaminophen 650 MG Suppository PR PRN (23:52)
[2024-10-17] MEDS ORDERED: Piperacillin/Tazobactam 3.375 GM in Sodium Chloride 0.9% 100 ML IVPB SCH (23:59)
[2024-10-18 00:40] LABS: CRP,High Sensitivity (Inhouse) 1.72 mg/dL (< or = 0.5)
[2024-10-18 00:41] LABS: ALT (SGPT) 104 U/L (8-55); AST (SGOT) 52 U/L (5-34); Albumin 3.8 g/dL (3.5-5.0); Alkaline Phosphatase 97 U/L (40-110); Anion Gap 16 mmol/L (10-20); BUN (Urea Nitrogen) 18 mg/dL (8.4-25.7); Bilirubin, Total 0.7 mg/dL (0.2-1.2); Calc. Creatinine Clearance 0 mL/min (70-130); Calcium 8.8 mg/dL (7.8-10.44); Carbon Dioxide 21 mmol/L (22-29); Chloride 108 mmol/L (98-107); Estimated GFR 100; Globulin 3.2 g/dL (2.4-3.5); Glucose 282 mg/dL (70-105); Potassium 4.2 mmol/L (3.5-5.1); Sodium 141 mmol/L (136-145)
[2024-10-18 00:45] VITALS: BMI 40.6
[2024-10-18] MEDS: Acetaminophen 325 MG TAB PO PRN (00:53)
[2024-10-18] MEDS: Piperacillin/Tazobactam 3.375 GM in Sodium Chloride 0.9% 100 ML IVPB SCH ×2 (00:53→05:03)
[2024-10-18 04:31] LABS: #Basophils 0.04 10x3/uL (0.0-0.2); %Basophils 0.4 % (0.0-1.0); %Eosinophils 0.9 % (0.0-10.0); %Lymphocytes 22.1 % (21.0-51.0); %Monocytes 7.8 % (0.0-10.0); %Neutrophils 68.5 % (42.0-75.0); Hematocrit 43.5 % (42.0-52.0); Hemoglobin 14.9 g/dL (14.0-18.0); Mean Corpuscular HGB CONC 34.3 g/dL (32.0-36.0); Mean Corpuscular Hemoglobin 30.3 pg (27.0-31.0); Mean Corpuscular Volume 88.4 fL (78.0-98.0); Mean Platelet Volume 13.6 fL (7.4-10.4); Platelet Count 103 10x3/uL (130-400); RBC Distribution Width 13.5 % (11.5-14.5); Red Blood Cell (RBC) Count 4.92 mill/uL (4.70-6.10)
[2024-10-18 04:46] LABS: Anion Gap 13 mmol/L (10-20); BUN (Urea Nitrogen) 18 mg/dL (8.4-25.7); Calc. Creatinine Clearance 158 mL/min (70-130); Calcium 8.8 mg/dL (7.8-10.44); Carbon Dioxide 22 mmol/L (22-29); Chloride 109 mmol/L (98-107); Estimated GFR 105; Glucose 233 mg/dL (70-105); Sodium 140 mmol/L (136-145)
[2024-10-18] MEDS: Famotidine 20 MG TAB PO SCH (08:46)
[2024-10-18] MEDS: Ketorolac Tromethamine 30 MG (1 mL) VIAL IVP PRN (08:46)
[2024-10-18] MEDS: Enoxaparin 40 MG (0.4 mL) SYRINGE SC SCH (08:46)
[2024-10-18] MEDS: Isosorbide Mononitrate 60 MG ER.TAB PO SCH (14:28)
[2024-10-18] MEDS: NIFEdipine XL 90 MG ER.TAB PO SCH (14:28)
[2024-10-18] MEDS: Spironolactone 100 MG TAB PO SCH (14:28)
[2024-10-18] MEDS: Nebivolol HCl 5 MG TAB PO SCH ×2 (14:28→20:53)
[2024-10-18] MEDS: metFORMIN 500 MG TAB PO SCH (17:10)
[2024-10-19 04:38] LABS: #Basophils 0.05 10x3/uL (0.0-0.2); %Basophils 0.5 % (0.0-1.0); %Eosinophils 4.3 % (0.0-10.0); %Lymphocytes 39.2 % (21.0-51.0); %Monocytes 8.7 % (0.0-10.0); %Neutrophils 46.7 % (42.0-75.0); Hematocrit 44.9 % (42.0-52.0); Hemoglobin 15.1 g/dL (14.0-18.0); Mean Corpuscular HGB CONC 33.6 g/dL (32.0-36.0); Mean Corpuscular Hemoglobin 29.8 pg (27.0-31.0); Mean Corpuscular Volume 88.7 fL (78.0-98.0); Mean Platelet Volume 13.4 fL (7.4-10.4); Platelet Count 118 10x3/uL (130-400); RBC Distribution Width 13.5 % (11.5-14.5); Red Blood Cell (RBC) Count 5.06 mill/uL (4.70-6.10)
[2024-10-19] MEDS: NIFEdipine XL 90 MG ER.TAB PO SCH (08:47)
[2024-10-19] MEDS: Empagliflozin 25 MG TAB PO SCH (08:47)
[2024-10-19] MEDS: Pantoprazole 40 MG DR.TAB PO SCH (08:47)
[2024-10-19] MEDS: DULoxetine 30 MG CAP PO SCH (08:47)
[2024-10-19] MEDS: Spironolactone 100 MG TAB PO SCH (08:48)
[2024-10-19] MEDS: oxyCODONE 5 MG TAB PO SCH (20:33)
[2024-10-19] MEDS: diphenhydrAMINE 50 MG CAP PO SCH (20:33)
[2024-10-20] MEDS: hydrALAZINE 25 MG TAB PO SCH (04:36)
[2024-10-20 04:46] LABS: #Basophils 0.08 10x3/uL (0.0-0.2); %Basophils 0.8 % (0.0-1.0); %Eosinophils 4.6 % (0.0-10.0); %Lymphocytes 36.7 % (21.0-51.0); %Monocytes 9.6 % (0.0-10.0); Hematocrit 47.7 % (42.0-52.0); Hemoglobin 15.9 g/dL (14.0-18.0); Mean Corpuscular HGB CONC 33.3 g/dL (32.0-36.0); Mean Corpuscular Hemoglobin 29.7 pg (27.0-31.0); Mean Platelet Volume 12.8 fL (7.4-10.4); Platelet Count 111 10x3/uL (130-400); RBC Distribution Width 13.4 % (11.5-14.5); Red Blood Cell (RBC) Count 5.36 mill/uL (4.70-6.10)
[2024-10-20 05:10] LABS: Anion Gap 14 mmol/L (10-20); BUN (Urea Nitrogen) 14 mg/dL (8.4-25.7); Calc. Creatinine Clearance 119 mL/min (70-130); Carbon Dioxide 24 mmol/L (22-29); Chloride 106 mmol/L (98-107); Estimated GFR 82; Glucose 107 mg/dL (70-105); Potassium 3.9 mmol/L (3.5-5.1); Sodium 140 mmol/L (136-145)
[2024-10-20 05:59] LABS: Calcium 9.2 mg/dL (7.8-10.44)
[2024-10-20] MEDS ORDERED: Dexamethasone 4 mg/ml Vial ONE (10:20)
[2024-10-20] MEDS ORDERED: Ondansetron PF 4 MG/2 ML Vial ONE (10:20)
[2024-10-20] MEDS ORDERED: Lidocaine 2% PF 5 ML VIAL ONE (10:20)
[2024-10-20] MEDS ORDERED: fentaNYL PF 100 MCG/2 ML SYRINGE ONE ×2 (10:21→12:07)
[2024-10-20] MEDS ORDERED: Midazolam HCl 2 mg/2 ml Vial ONE (10:21)
[2024-10-20] MEDS ORDERED: PROPOFOL 20 ML ONE (10:21)
[2024-10-20] MEDS: cloNIDine 0.2mg/24 Hour PATCH TD SCH (11:22)
[2024-10-20] MEDS ORDERED: Vancomycin 1 GM VIAL ONE (11:23)
[2024-10-20] MEDS ORDERED: fentaNYL 50 mcg/mL 1 mL Vial ONE (12:33)
[2024-10-20] MEDS: oxyCODONE 5 MG TAB PO PRN (14:37)
[2024-10-20] MEDS: Acetaminophen 500 MG TAB PO SCH (14:44)
[2024-10-21 05:11] LABS: #Basophils 0.05 10x3/uL (0.0-0.2); %Basophils 0.5 % (0.0-1.0); %Eosinophils 4.2 % (0.0-10.0); %Lymphocytes 27.2 % (21.0-51.0); %Monocytes 9.7 % (0.0-10.0); %Neutrophils 57.9 % (42.0-75.0); Hematocrit 46.5 % (42.0-52.0); Hemoglobin 15.6 g/dL (14.0-18.0); Mean Corpuscular HGB CONC 33.5 g/dL (32.0-36.0); Mean Corpuscular Hemoglobin 29.6 pg (27.0-31.0); Mean Corpuscular Volume 88.2 fL (78.0-98.0); Platelet Count 127 10x3/uL (130-400); RBC Distribution Width 13.2 % (11.5-14.5); Red Blood Cell (RBC) Count 5.27 mill/uL (4.70-6.10)
[2024-10-21 05:30] LABS: Anion Gap 16 mmol/L (10-20); BUN (Urea Nitrogen) 12 mg/dL (8.4-25.7); Calc. Creatinine Clearance 173 mL/min (70-130); Calcium 8.4 mg/dL (7.8-10.44); Carbon Dioxide 19 mmol/L (22-29); Chloride 107 mmol/L (98-107); Estimated GFR 108; Glucose 117 mg/dL (70-105); Potassium 3.5 mmol/L (3.5-5.1); Sodium 138 mmol/L (136-145)
[2024-10-21 15:05] VITALS: BMI 40.6
[2024-10-21] MEDS: FLU (Fluarix Triv) TS24-25(6MOS UP)/PF 45 MCG/0.5 ML Syringe IM ONE (15:44)
[2024-10-21 17:24] VITALS: BP 185/82; TEMP 97.9
== END 2024-10-21 15:55 | disposition home or self-care (01) | DRG 572 ==
LOC: ERS 21:48 → SUATTDRO 21:48 → MSONC 23:55 → OBSVTOIN 10-19 11:23
PROVIDERS: ADMIT Family Medicine; ATTEND Family Medicine
PROC: 5A09357 Assistance with Respiratory Ventilation, Less than 24 Consecutive Hours, Continuous Positive Airway Pressure (ICD-10-PCS; principal; 2024-10-18)
PROC: 0JBG0ZZ Excision of Right Lower Arm Subcutaneous Tissue and Fascia, Open Approach (ICD-10-PCS; 2024-10-20)
PROC: 0J9G0ZZ Drainage of Right Lower Arm Subcutaneous Tissue and Fascia, Open Approach (ICD-10-PCS; 2024-10-20)
DX: L03.113 Cellulitis of right upper limb (principal); I10 Essential (primary) hypertension; E11.9 Type 2 diabetes mellitus without complications; K76.0 Fatty (change of) liver, not elsewhere classified; G47.33 Obstructive sleep apnea (adult) (pediatric); K74.69 Other cirrhosis of liver; Z90.49 Acquired absence of other specified parts of digestive tract; Z88.5 Allergy status to narcotic agent; W55.01XA Bitten by cat, initial encounter
CPT/HCPCS: 36415; 80048; 80053; 85025; 86141; 87070; 87077; 87186; 87205; 94660; 96365; 96372; 96375; 96376; 97139; G0378; J0295; J1100; J1650; J1885; J2250; J2405; J2543; J2704; J3010; J3370

== ENCOUNTER 2024-11-06 12:59 | Outpatient (CLI) | payer BC, MEDICARE | END 2024-11-06 13:00 | disposition home or self-care (01) | LOC: SCSMRI 12:59 | PROVIDERS: ATTEND Internal Medicine Gastroenterology | DX: K74.60 Unspecified cirrhosis of liver (principal); K76.0 Fatty (change of) liver, not elsewhere classified | CPT/HCPCS: 74183 ==